=== PATIENT | male | born 1970 | race Caucasian/White ===

== ENCOUNTER 2021-03-30 16:14 | Observation (INO) | payer OTHER, SELFPAY ==
[2021-03-30] VITALS (11 sets, daily range): BP systolic 99–132; BP diastolic 57–70; PULSE 104–116; RESP 16–22; TEMP 37.2–39; O2SAT 91–100; BMI 29.8
--- NOTE | 2021-03-30 16:37 | DI.RAD.S_ITS ---
PROCEDURE: XR CHEST 1V INDICATIONS: suspected sepsis TECHNIQUE: One view of the chest was acquired. COMPARISON: None. FINDINGS: Surgical changes and devices: None. Lungs and pleura: Mild pulmonary vascular congestion is seen. No definite focal infiltrate. Right basilar atelectasis is seen. No pleural effusions or pneumothorax. Mediastinum: Mediastinal contours appear normal. Heart size is normal. Bones and chest wall: No suspicious bony lesions. Overlying soft tissues appear unremarkable. IMPRESSION: Mild pulmonary vascular congestion and right basilar atelectasis. No definite focal infiltrate. No significant pleural effusion or pneumothorax. Dictated by: Navi Mckeon M.D. on 03/30/2021 at 17:10 Approved by: Navi Mckeon M.D. on 03/30/2021 at 17:10
--- NOTE | 2021-03-30 17:36 | DI.CT.S_ITS ---
PROCEDURE: CT LE LT W CON INDICATIONS: ? Popliteal cyst, ? trauma TECHNIQUE: Noncontrast 3 mm axial sections acquired of the left lower extremity , with coronal and sagittal reformats. COMPARISON: None. FINDINGS: Image quality: Excellent. Bones: There is moderate tricompartmental osteoarthrosis of the left knee with joint space narrowing of the medial femorotibial compartment. Prominent marginal osteophyte are seen in all 3 compartments. No acute fracture. Normal alignment. No suspicious intraosseous lesion. Soft tissues: There is a moderate to large sized suprapatellar joint effusion. There is skin thickening involving the distal anterior left thigh extending to the distal left lower leg. There is also associated diffuse subcutaneous soft tissue edema seen throughout the imaged lower extremity. No evidence for organized fluid collections. No CT evidence for subcutaneous gas. No significant muscular soft tissue edema of the deep compartments of the lower leg. IMPRESSION: 1. No acute fracture, dislocation, or suspicious intraosseous lesions. 2. Moderate-large size suprapatellar joint effusion. If there is clinical concern for infectious etiology, consider further evaluation with aspiration. 3. Extensive skin thickening/edema with underlying subcutaneous soft tissue swelling of the imaged left lower extremity. Findings may be related to cellulitis. No organized fluid collection seen. 4. Moderate tricompartmental osteoarthrosis of the left knee. 5. No CT evidence for subcutaneous gas. Dictated by: Mathew Sanford M.D. on 03/30/2021 at 18:31 Approved by: Mathew Sanford M.D. on 03/30/2021 at 18:37
--- NOTE | 2021-03-30 18:00 | DI.US.S_ITS ---
PROCEDURE: US PERIPH VENOUS LOW EXTREM LT INDICATIONS: SWELLING AND ERYTHEMA TECHNIQUE: Real-time imaging, as well as color and pulse Doppler interrogation, were performed of the lower extremity deep veins from the inguinal ligament to the popliteal fossa. COMPARISON: [facility], CT, CT LE LT WO CON, 03/30/2021, 17:48. FINDINGS: The common femoral, femoral and popliteal veins are normally compressible, and free of intraluminal thrombus. Color and pulse Doppler demonstrate normal phasic intraluminal flow. There is normal augmentation response to distal compression maneuver. IMPRESSION: Negative for deep venous thrombosis of the left lower extremity. Not mentioned above, numerous prominent left inguinal lymph nodes are noted. These are likely reactive. Dictated by: Mathew Sanford M.D. on 03/30/2021 at 18:51 Approved by: Mathew Sanford M.D. on 03/30/2021 at 18:52
[2021-03-30] MEDS: SODIUM CHLORIDE 0.9% 1,000 ML 1000 ML IV ×3 (18:06→23:40)
[2021-03-30 18:15] LABS: Add Manual Diff / Slide Review NO; Basophils Absolute Auto 0 /uL (0-100); Basophils Percent Auto 0.2 % (0-2); Eosinophils Absolute Auto 0 /uL (0-450); Hematocrit 43.3 % (41-53); Hemoglobin 14.7 g/dL (13.5-17.5); Lymphocytes Absolute Auto 600 /uL (1100-4500); Mean Corpuscular HGB Conc 33.9 % (30-36); Mean Corpuscular Hemoglobin 29.1 PG (26-34); Mean Corpuscular Volume 85.7 fL (80-100); Monocytes Absolute Auto 700 /uL (0-900); Monocytes Percent Auto 3.7 % (3-14); Neutrophils Absolute Auto 17700 /uL (1500-7000); Neutrophils Percent Auto 93.1 % (50-75); Platelet Count 170 X10^3/uL (150-400); Red Blood Cell Count 5.05 X10^6/uL (4.5-5.9); Red Cell Distribution Width 13.3 % (11.6-14.8)
[2021-03-30] MEDS: MORPHINE 4 MG/ML INJ IV (18:33)
[2021-03-30 18:39] LABS: Alanine Aminotransferase 19 IU/L (<50); Albumin 4.2 g/dL (3.5-5.0); Albumin Globulin Ratio 1.4 (1.0-2.8); Alkaline Phosphatase 73 U/L (38-126); Aspartate Aminotransferase 24 IU/L (17-59); BUN Creatinine Ratio 12.8 (6-22); Bilirubin Total 0.7 mg/dL (0.2-1.3); Blood Urea Nitrogen 14 mg/dL (9-20); Calcium 9.4 mg/dL (8.4-10.2); Carbon Dioxide 31 mmol/L (22-32); Chloride 97 mmol/L (98-107); Estimated Glomerular Filt Rate > 60.0 mL/min (>60); Globulin 3.1 g/dL (1.7-4.1); Glucose 112 mg/dL (70-100); HEMOLYSIS < 15 (0-50); Lipase 97 U/L (23-300); Potassium 4.1 mmol/L (3.4-5.1); Sodium 135 mmol/L (137-145); Total Protein 7.3 g/dL (6.3-8.2)
[2021-03-30 18:40] LABS: Lactate (Lactic Acid) 2.2 mmol/L (0.7-2.1)
[2021-03-30 18:43] LABS: C-Reactive Protein Quant 3.2 mg/dL (<1.0)
[2021-03-30 18:55] LABS: Procalcitonin 7.25 ng/mL (<0.5)
[2021-03-30 19:18] LABS: Erythrocyte Sedimentation Rate 4 MM/HR (0-15)
[2021-03-30] MEDS: ACETAMINOPHEN 325 MG TABLET 975 MG PO (19:30)
--- NOTE | 2021-03-30 19:41 | ED_ITS ---
HPI - Skin/Abscess/Foreign Bdy <Trevor Edwards PA-C - Last Filed: 03/30/21 20:41> General Chief complaint: Skin/Abscess/Foreign Body Stated complaint: Left Knee/Leg Pain and Swelling Time Seen by Provider: 03/30/21 16:57 Source: patient Mode of arrival: Wheelchair History of Present Illness HPI narrative: 50-year-old male with no reported past medical history presents to the ED with 1 day of left knee redness and lower left leg swelling, pain. Patient states that he has had left knee problems for the last year, however this morning he noticed that the front of the left knee looked red but less swollen and less painful. However he experience redness,intense pain in his left lower leg. Patient denies any recent trauma or infection. Denies fever, endorses chills. Denies chest pain, shortness of breath, cough, nausea, vomiting, abdominal pain, dysuria, diarrhea, lightheadedness, dizziness, syncope. Patient states he is able to bend his knee and flexes ankles, but his range of movement is somewhat limited by pain. Patient is a states he is able to bear weight and walk on the left leg although it is painful. Patient denies numbness, tingling, weakness. Related Data Previous Rx's Medication Instructions Recorded doxycycline hyclate 100 mg tablet 100 mg PO BID #20 tab 03/31/21 sulfamethoxazole 800 1 tab PO BID #20 tab 03/31/21 mg-trimethoprim 160 mg tablet (Bactrim DS) Allergies Allergy/AdvReac Type Severity Reaction Status Date / Time No Known Drug Allergies Allergy Verified 03/30/21 20:21 Review of Systems <Trevor Edwards PA-C - Last Filed: 03/30/21 20:41> Constitutional Constitutional: Reports chills, Denies fatigue, Denies fever(s), Denies frequent falls, Denies lethargy and Denies weakness Eyes Eyes: Denies change in vision, Denies eye discharge, Denies irritation and Denies loss of vision ENT Ears, Nose, Mouth, and Throat: Denies change in voice, Denies dizziness, Denies neck pain, Denies sore throat and Denies throat swelling Cardiovascular Cardiovascular: Denies chest pain, Denies irregular heart rhythm, Denies li ghtheadedness, Denies palpitations, Denies dyspnea, Denies dyspnea on exertion and Denies orthopnea Respiratory Respiratory: Denies cough, Denies dyspnea, Denies dyspnea on exertion and Denies wheezing Gastrointestinal Gastrointestinal: Denies abdominal pain, Denies change in bowel habits, Denies diarrhea, Denies nausea and Denies vomiting Musculoskeletal Musculoskeletal: Denies neck pain and Denies numbness Comments: Swelling, erythema, pain, of left knee, left lower leg pain Integumentary/Breasts Skin/Breast: Denies pruritus, Denies erythema, Denies rash and Denies wounds Neurologic Neurologic: Denies behavioral changes, Denies confusion, Denies dizziness, Denies frequent falls, Denies loss of vision, Denies numbness and Denies weakness Psychiatric Psychiatric: Denies anxiety, Denies behavioral changes, Denies confusion, Denies depression, Denies homicidal ideation and Denies suicidal ideation Endocrine Endocrine: Denies fatigue, Denies flushing and Denies palpitations Hematologic/Lymphatic Hematologic/Lymphatic: Denies easy bruising Allergic/Immunologic Allergic/Immunologic: Denies urticaria, Denies throat swelling and Denies wheezing Patient History <Trevor Edwards PA-C - Last Filed: 03/30/21 20:41> Social History household members: spouse Smoking Status: Current every day smoker Smoking Status: Current every day smoker Exam <Trevor Edwards PA-C - Last Filed: 03/30/21 20:41> Initial Vital Signs Initial Vital Signs: Vital Signs Temperature 99.9 F H 03/30/21 16:33 Pulse Rate 114 H 03/30/21 16:33 Respiratory Rate 22 03/30/21 16:33 Blood Pressure 127/60 03/30/21 16:33 Pulse Oximetry 100 03/30/21 16:33 Const General: cooperative [facility] Head: normocephalic and atraumatic Ears: external ears normal and TM's normal bilaterally Nose: external nose normal and No nasal discharge Face and sinus: sinuses nontender, face symmetric, no sinus tenderness and No dry mucous membranes Mouth: oral mucosae normal and moist mucous membranes Teeth and gingiva: dentition normal Throat: tonsils normal and uvula midline Eyes General: appearance normal, both eyes and all related structures Eyelids: eyelids normal Conjunctivae: conjunctivae normal Sclera: sclerae normal Pupils: PERRL EOM: EOM intact bilaterally Neck Neck: normal visual inspection, trachea midline, No lymphadenopathy, No midline deformity and No JVD Lymphatic: No lymphedema Chest Chest: normal inspection of the chest Resp Effort & Inspection: normal respiratory effort, able to speak in complete sentences, no respiratory distress and no use of accessory muscles Auscultation: clear to auscultation bilaterally, no rales, no rhonchi and no wheezes Cardio Rate: regular rate and tachycardic Rhythm: regular rhythm Heart Sounds: no click, no gallops, no murmurs and no rubs Pulses: normal peripheral pulses GI Inspection: non-distended Palpation: soft, no hepatosplenomegaly, No guarding, No pulsatile mass and No tender Auscultation: normal bowel sounds Back/Spine/Pelvis Back: No CVA tenderness Cervical Spine: cervical ROM normal and No pain with cervical ROM Thoracic/Lumbar Spine: thoracic and lumbar spine normal to inspection Skin General: no rashes or lesions noted, No jaundice and No petechiae Neuro General: patient alert, patient oriented x3, gait normal and no focal motor deficits Speech: speech normal Extrem General: full ROM, no clubbing, cyanosis or edema, no pedal edema and no calf tenderness Other: Swelling, erythema, warmth, TTP of left anterior knee, left lower leg. Full range of motion, knee and ankle movement only limited by pain. Neurovascularly intact. Psych Appearance: well kempt Mental Status: mental status grossly normal Attitude: cooperative Thought Content: normal and suicidality Judgment: judgment good <Mary Knox, - Last Filed: 04/01/21 08:21> Initial Vital Signs Initial Vital Signs: Vital Signs Temperature 99.9 F H 03/30/21 16:33 Pulse Rate 114 H 03/30/21 16:33 Respiratory Rate 22 03/30/21 16:33 Blood Pressure 127/60 03/30/21 16:33 Pulse Oximetry 100 03/30/21 16:33 <Mary Knox DO - Last Filed: 04/01/21 08:21> Joint Aspiration Joint Asp./Inject. 1: Side of body: left Joint Aspirated: knee (Prepatellar) Skin Prep: Chlorhexidine Local Anesthetic: lidocaine 1% Amount of anesthesia used (mL): 2 Needle Size Used: 18G Fluid Obtained: bloody Total fluid obtained (mL): 4 Complications: none Course <Trevor Edwards PA-C - Last Filed: 03/30/21 20:41> Course Course Narrative: WBC 19, lactate 2.2, procalcitonin 7.25, CRP 3.2, ESR 4. Patient triggered sepsis, sepsis fluid started. Tylenol given for fever. Blood cultures ordered. Consulted with Dr. Tanner from Orthopedics, he recommends a tap of the prepatellar bursa prior to starting IV vancomycin, admitting to Medicine. Dr. Tanner will follow-up with patient tomorrow to see how he is responding to antibiotic treatment. Patient's prepatellar bursa tapped by Dr. Mary Knox. Dr. Tanner notified regarding tap. Blood cultures drawn Vancomuycin.Zosyn initiated. Patient given Toradol in addition to Tylenol for fever that is now elevated to 102F. Patient otherwise stable. Patient admitted to medicine with Dr. Wilson. Orders Ordered: ED Orders 03/30/21 16:37 XR chest 1V Stat Blood Culture Stat 03/30/21 17:36 CT LE LT wo con Stat 03/30/21 18:00 US periph venous low extrem lt Stat C-Reactive Protein Quant Stat Complete Blood Count AUTO DIFF Stat Comprehensive Metabolic Panel Stat Erythrocyte Sedimentation Rate Stat Lactate (Lactic Acid) Stat Lipase Stat Procalcitonin Stat 03/30/21 20:26 Body Fluid Culture Stat Cell Count w Diff Body Fluid Stat Glucose Body Fluid Stat Gram Stain Stat Total Protein Body Fluid Stat 03/30/21 20:31 COVID19 - ADMIT ([employer] swab/PCR) Stat Vancomycin HCl/Dextrose (Vancomycin) 1,500 mg in 300 mls @ 200 mls/hr IV Q12H SARAH Discontinued Medications Acetaminophen (Acetaminophen 325 Mg Tablet) 975 mg PO NOW ONE Stop: 03/30/21 19:17 Last Admin: 03/30/21 19:30 Dose: 975 mg Documented by: RADHA Sodium Chloride (Normal Saline 0.9%) 1,000 mls @ 1,000 mls/hr IV BOLUS ONE Stop: 03/30/21 17:36 Last Infusion: 03/30/21 19:14 Dose: 0 mls/hr Documented by: [email or web address] Admin: 03/30/21 18:06 Dose: 1,000 mls/hr Documented by: CTRGriffinGENA Sodium Chloride (Normal Saline 0.9%) 1,000 mls @ 1,000 mls/hr IV BOLUS ONE Stop: 03/30/21 19:55 Last Admin: 03/30/21 19:23 Dose: 1,000 mls/hr Documented by: SRINI Sodium Chloride (Normal Saline 0.9%) 1,000 mls @ 2,000 mls/hr IV BOLUS ONE Stop: 03/30/21 19:44 Last Admin: 03/30/21 19:30 Dose: Not Given Documented by: RADHA Piperacillin Sod/Tazobactam (Sod 4.5 gm/ Sodium Chloride) 100 mls @ 200 mls/hr IV NOW ONE Stop: 03/30/21 20:31 Ketorolac Tromethamine (Ketorolac 30 Mg/Ml Vial) 15 mg IV NOW ONE Stop: 03/30/21 20:15 Last Admin: 03/30/21 20:24 Dose: 15 mg Documented by: STACI Lidocaine HCl (Lidocaine 1% 20 Ml) 10 ml INJ NOW ONE Stop: 03/30/21 20:08 Last Admin: 03/30/21 20:22 Dose: Not Given Documented by: STACI Morphine Sulfate (Morphine 4 Mg/Ml Inj) 4 mg IV NOW ONE Stop: 03/30/21 18:09 Last Admin: 03/30/21 18:33 Dose: 4 mg Documented by: SRINI Vital Signs Vital signs: Vital Signs - 8 hr 03/30/21 16:33 03/30/21 18:49 03/30/21 19:58 Temperature 99.9 F H Pulse Rate 114 H 113 H 115 H Respiratory Rate 22 20 Blood Pressure 127/60 132/70 Pulse Oximetry 100 95 93 03/30/21 20:00 03/30/21 20:10 Temperature 102.2 F H 102.2 F H Pulse Rate 116 H Respiratory Rate Blood Pressure 121/68 Pulse Oximetry 93 <Mary Knox DO - Last Filed: 04/01/21 08:21> Orders Ordered: ED Orders 03/30/21 16:37 XR chest 1V Stat Blood Culture Stat 03/30/21 17:36 CT LE LT wo con Stat 03/30/21 18:00 US periph venous low extrem lt Stat C-Reactive Protein Quant Stat Complete Blood Count AUTO DIFF Stat Comprehensive Metabolic Panel Stat Erythrocyte Sedimentation Rate Stat Lactate (Lactic Acid) Stat Lipase Stat Procalcitonin Stat 03/30/21 20:26 Body Fluid Culture Stat Cell Count w Diff Body Fluid Stat Glucose Body Fluid Stat Gram Stain Stat Total Protein Body Fluid Stat 03/30/21 20:31 COVID19 - ADMIT ([employer] swab/PCR) Stat Vancomycin HCl/Dextrose (Vancomycin) 1,500 mg in 300 mls @ 200 mls/hr IV Q12H SARAH Discontinued Medications Acetaminophen (Acetaminophen 325 Mg Tablet) 975 mg PO NOW ONE Stop: 03/30/21 19:17 Last Admin: 03/30/21 19:30 Dose: 975 mg Documented by: RADHA Sodium Chloride (Normal Saline 0.9%) 1,000 mls @ 1,000 mls/hr IV BOLUS ONE Stop: 03/30/21 17:36 Last Infusion: 03/30/21 19:14 Dose: 0 mls/hr Documented by: Admin: 03/30/21 18:06 Dose: 1,000 mls/hr Documented by: HANDER Sodium Chloride (Normal Saline 0.9%) 1,000 mls @ 1,000 mls/hr IV BOLUS ONE Stop: 03/30/21 19:55 Last Admin: 03/30/21 19:23 Dose: 1,000 mls/hr Documented by: HANDER Sodium Chloride (Normal Saline 0.9%) 1,000 mls @ 2,000 mls/hr IV BOLUS ONE Stop: 03/30/21 19:44 Last Admin: 03/30/21 19:30 Dose: Not Given Documented by: RADHA Piperacillin Sod/Tazobactam (Sod 4.5 gm/ Sodium Chloride) 100 mls @ 200 mls/hr IV NOW ONE Stop: 03/30/21 20:31 Ketorolac Tromethamine (Ketorolac 30 Mg/Ml Vial) 15 mg IV NOW ONE Stop: 03/30/21 20:15 Last Admin: 03/30/21 20:24 Dose: 15 mg Documented by: STACI Lidocaine HCl (Lidocaine 1% 20 Ml) 10 ml INJ NOW ONE Stop: 03/30/21 20:08 Last Admin: 03/30/21 20:22 Dose: Not Given Documented by: STACI Morphine Sulfate (Morphine 4 Mg/Ml Inj) 4 mg IV NOW ONE Stop: 03/30/21 18:09 Last Admin: 03/30/21 18:33 Dose: 4 mg Documented by: SRINI Vital Signs Vital signs: Vital Signs - 8 hr 03/30/21 16:33 03/30/21 18:49 03/30/21 19:58 Temperature 99.9 F H Pulse Rate 114 H 113 H 115 H Respiratory Rate 22 20 Blood Pressure 127/60 132/70 Pulse Oximetry 100 95 93 03/30/21 20:00 03/30/21 20:10 Temperature 102.2 F H 102.2 F H Pulse Rate 116 H Respiratory Rate Blood Pressure 121/68 Pulse Oximetry 93 MDM - Skin/Abscess/Foreign Bdy <Trevor Edwards PA-C - Last Filed: 03/30/21 20:41> Lab Data Lab results narrative: WBC 19, ESR for, CRP 3.2, lactate 2.2 Result diagrams: 03/31/21 05:30 03/31/21 05:30 Labs: Lab Results 03/30/21 03/30/21 03/30/21 Range/Units 18:00 18:00 18:00 WBC 19.0 H (4.5-11.0) X10^3/uL RBC 5.05 (4.5-5.9) X10^6/uL Hgb 14.7 (13.5-17.5) g/dL Hct 43.3 (41-53) % MCV 85.7 (80-100) fL MCH 29.1 (26-34) PG MCHC 33.9 (30-36) % RDW 13.3 (11.6-14.8) % Plt Count 170 (150-400) X10^3/uL Neut % (Auto) 93.1 H (50-75) % Lymph % (Auto) 3.0 L (25-40) % [place] % (Auto) 3.7 (3-14) % Eos % (Auto) 0.0 L (2-4) % Baso % (Auto) 0.2 (0-2) % Neut # (Auto) 97555 H (5402-0290) /uL Lymph # (Auto) 600 L (8032-8492) /uL [place] # (Auto) 700 (0-900) /uL Eos # (Auto) 0 (0-450) /uL Baso # (Auto) 0 (0-100) /uL ESR (0-15) MM/HR Sodium 135 L (137-145) mmol/L Potassium 4.1 (3.4-5.1) mmol/L Chloride 97 L (98-107) mmol/L Carbon Dioxide 31 (22-32) mmol/L BUN 14 (9-20) mg/dL Creatinine 1.09 (0.66-1.25) mg/dL Estimated GFR > 60.0 (>60) mL/min BUN/Creatinine Ratio 12.8 (6-22) Glucose 112 H (70-100) mg/dL Lactate 2.2 H (0.7-2.1) mmol/L Calcium 9.4 (8.4-10.2) mg/dL Total Bilirubin 0.7 (0.2-1.3) mg/dL AST 24 (17-59) IU/L ALT 19 (<50) IU/L Alkaline Phosphatase 73 (38-126) U/L C-Reactive Protein (<1.0) mg/dL Total Protein 7.3 (6.3-8.2) g/dL Albumin 4.2 (3.5-5.0) g/dL Globulin 3.1 (1.7-4.1) g/dL Albumin/Globulin Ratio 1.4 (1.0-2.8) Lipase 97 (23-300) U/L Procalcitonin 7.25 H (<0.5) ng/mL Fluid Color Fluid Appearance Fluid RBC /uL Fld Tot Nucleated Cell /uL Fluid Polynuclear WBCs % Fluid Mononuclear WBCs % Fluid Eosinophils % Fluid Other Cells % Body Fluid Clot Fluid Glucose mg/dL Fluid Total Protein g/dL 03/30/21 03/30/21 03/30/21 Range/Units 18:00 18:00 20:25 WBC (4.5-11.0) X10^3/uL RBC (4.5-5.9) X10^6/uL Hgb (13.5-17.5) g/dL Hct (41-53) % MCV (80-100) fL MCH (26-34) PG MCHC (30-36) % RDW (11.6-14.8) % Plt Count (150-400) X10^3/uL Neut % (Auto) (50-75) % Lymph % (Auto) (25-40) % [place] % (Auto) (3-14) % Eos % (Auto) (2-4) % Baso % (Auto) (0-2) % Neut # (Auto) (2958-3014) /uL Lymph # (Auto) (6272-7552) /uL [place] # (Auto) (0-900) /uL Eos # (Auto) (0-450) /uL Baso # (Auto) (0-100) /uL ESR 4 (0-15) MM/HR Sodium (137-145) mmol/L Potassium (3.4-5.1) mmol/L Chloride (98-107) mmol/L Carbon Dioxide (22-32) mmol/L BUN (9-20) mg/dL Creatinine (0.66-1.25) mg/dL Estimated GFR (>60) mL/min BUN/Creatinine Ratio (6-22) Glucose (70-100) mg/dL Lactate (0.7-2.1) mmol/L Calcium (8.4-10.2) mg/dL Total Bilirubin (0.2-1.3) mg/dL AST (17-59) IU/L ALT (<50) IU/L Alkaline Phosphatase (38-126) U/L C-Reactive Protein 3.2 H (<1.0) mg/dL Total Protein (6.3-8.2) g/dL Albumin (3.5-5.0) g/dL Globulin (1.7-4.1) g/dL Albumin/Globulin Ratio (1.0-2.8) Lipase (23-300) U/L Procalcitonin (<0.5) ng/mL Fluid Color Red Fluid Appearance Cloudy Fluid RBC 974513 /uL Fld Tot Nucleated Cell 99564 /uL Fluid Polynuclear WBCs 88 % Fluid Mononuclear WBCs 12 % Fluid Eosinophils 0 % Fluid Other Cells 0 % Body Fluid Clot No clots present Fluid Glucose < 20 mg/dL Fluid Total Protein 2.8 g/dL Imaging Data CT scan Left LE: Radiologist's Impression: PROCEDURE:? CT LE LT W CON ? INDICATIONS:? ? Popliteal cyst, ? trauma ? TECHNIQUE:? Noncontrast 3 mm axial sections acquired of the left lower extremity , with coronal and sagittal reformats. ? ? COMPARISON:? None. ? FINDINGS:? Image quality:? Excellent.? ? Bones:? There is moderate tricompartmental osteoarthrosis of the left knee with joint space narrowing of the medial femorotibial compartment.? Prominent marginal osteophyte are seen in all 3 compartments.? No acute fracture.? Normal alignment.? No suspicious intraosseous lesion. ? Soft tissues:? There is a moderate to large sized suprapatellar joint effusion.? There is skin thickening involving the distal anterior left thigh extending to the distal left lower leg.? There is also associated diffuse subcutaneous soft tissue edema seen throughout the imaged lower extremity.? No evidence for organized fluid collections.? No CT evidence for subcutaneous gas.? No significant muscular soft tissue edema of the deep compartments of the lower leg. ? IMPRESSION:? ? 1. No acute fracture, dislocation, or suspicious intraosseous lesions. ? 2. Moderate-large size suprapatellar joint effusion.? If there is clinical concern for infectious etiology, consider further evaluation with aspiration. ? 3. Extensive skin thickening/edema with underlying subcutaneous soft tissue swelling of the imaged left lower extremity.? Findings may be related to cellulitis.? No organized fluid collection seen. ? 4. Moderate tricompartmental osteoarthrosis of the left knee. ? 5. No CT evidence for subcutaneous gas.? ? ? Dictated by: Mathew Sanford M.D. on 03/30/2021 at 18:31 ? ? Approved by: Mathew Sanford M.D. on 03/30/2021 at 18:37 ? US - DVT: Radiologist's Impression: PROCEDURE:? US PERIPH VENOUS LOW EXTREM LT ? INDICATIONS:? SWELLING AND ERYTHEMA ? TECHNIQUE:? Real-time imaging, as well as color and pulse Doppler interrogation, were performed of the lower extremity deep veins from the inguinal ligament to the popliteal fossa.? ? COMPARISON:? [facility], CT, CT LE LT WO CON, 03/30/2021, 17:48. ? FINDINGS:? The common femoral, femoral and popliteal veins are normally compressible, and free of intraluminal thrombus.? Color and pulse Doppler demonstrate normal phasic intraluminal flow.? There is normal augmentation response to distal compression maneuver. ? ? IMPRESSION:? Negative for deep venous thrombosis of the left lower extremity. ? Not mentioned above, numerous prominent left inguinal lymph nodes are noted.? These are likely reactive. ? ? ? Dictated by: Mathew Sanford M.D. on 03/30/2021 at 18:51 ? ? Approved by: Mathew Sanford M.D. on 03/30/2021 at 18:52 ? Chest x-ray: Radiologist's Impression: PROCEDURE:? XR CHEST 1V ? INDICATIONS:? suspected sepsis ? TECHNIQUE:? One view of the chest was acquired.? ? COMPARISON:? None. ? FINDINGS:? ? Surgical changes and devices:? None.? ? Lungs and pleura:? Mild pulmonary vascular congestion is seen.? No definite focal infiltrate.? Right basilar atelectasis is seen.? No pleural effusions or pneumothorax.? ? Mediastinum:? Mediastinal contours appear normal.? Heart size is normal.? ? Bones and chest wall:? No suspicious bony lesions.? Overlying soft tissues appear unremarkable.? ? IMPRESSION:? Mild pulmonary vascular congestion and right basilar atelectasis.? No definite focal infiltrate.? No significant pleural effusion or pneumothorax. ? ? Dictated by: Navi Mckeon M.D. on 03/30/2021 at 17:10 ? ? Approved by: Navi Mckeon M.D. on 03/30/2021 at 17:10 ? MDM Narrative Medical decision making narrative: 50-year-old male with no reported past medical history presents to the ED with 1 day of left knee redness and lower left leg swelling, pain. Concern for septic arthritis versus septic bursitis versus Villalobos cyst versus cellulitis versus DVT versus sepsis versus bacteremia. Will order labs, lactate, ESR, CRP, procalcitonin, blood cultures, ultrasound left lower extremity, CT left lower extremity. Will give Tylenol for fever. Will reassess. <Mary Knox, - Last Filed: 04/01/21 08:21> Lab Data Labs: Lab Results 03/30/21 03/30/21 03/30/21 Range/Units 18:00 18:00 18:00 WBC 19.0 H (4.5-11.0) X10^3/uL RBC 5.05 (4.5-5.9) X10^6/uL Hgb 14.7 (13.5-17.5) g/dL Hct 43.3 (41-53) % MCV 85.7 (80-100) fL MCH 29.1 (26-34) PG MCHC 33.9 (30-36) % RDW 13.3 (11.6-14.8) % Plt Count 170 (150-400) X10^3/uL Neut % (Auto) 93.1 H (50-75) % Lymph % (Auto) 3.0 L (25-40) % [place] % (Auto) 3.7 (3-14) % Eos % (Auto) 0.0 L (2-4) % Baso % (Auto) 0.2 (0-2) % Neut # (Auto) 88017 H (0882-7271) /uL Lymph # (Auto) 600 L (0272-9941) /uL [place] # (Auto) 700 (0-900) /uL Eos # (Auto) 0 (0-450) /uL Baso # (Auto) 0 (0-100) /uL ESR (0-15) MM/HR Sodium 135 L (137-145) mmol/L Potassium 4.1 (3.4-5.1) mmol/L Chloride 97 L (98-107) mmol/L Carbon Dioxide 31 (22-32) mmol/L BUN 14 (9-20) mg/dL Creatinine 1.09 (0.66-1.25) mg/dL Estimated GFR > 60.0 (>60) mL/min BUN/Creatinine Ratio 12.8 (6-22) Glucose 112 H (70-100) mg/dL Lactate 2.2 H (0.7-2.1) mmol/L Calcium 9.4 (8.4-10.2) mg/dL Total Bilirubin 0.7 (0.2-1.3) mg/dL AST 24 (17-59) IU/L ALT 19 (<50) IU/L Alkaline Phosphatase 73 (38-126) U/L C-Reactive Protein (<1.0) mg/dL Total Protein 7.3 (6.3-8.2) g/dL Albumin 4.2 (3.5-5.0) g/dL Globulin 3.1 (1.7-4.1) g/dL Albumin/Globulin Ratio 1.4 (1.0-2.8) Lipase 97 (23-300) U/L Procalcitonin 7.25 H (<0.5) ng/mL Fluid Color Fluid Appearance Fluid RBC /uL Fld Tot Nucleated Cell /uL Fluid Polynuclear WBCs % Fluid Mononuclear WBCs % Fluid Eosinophils % Fluid Other Cells % Body Fluid Clot Fluid Glucose mg/dL Fluid Total Protein g/dL 03/30/21 03/30/21 03/30/21 Range/Units 18:00 18:00 20:25 WBC (4.5-11.0) X10^3/uL RBC (4.5-5.9) X10^6/uL Hgb (13.5-17.5) g/dL Hct (41-53) % MCV (80-100) fL MCH (26-34) PG MCHC (30-36) % RDW (11.6-14.8) % Plt Count (150-400) X10^3/uL Neut % (Auto) (50-75) % Lymph % (Auto) (25-40) % [place] % (Auto) (3-14) % Eos % (Auto) (2-4) % Baso % (Auto) (0-2) % Neut # (Auto) (3712-1759) /uL Lymph # (Auto) (9917-0908) /uL [place] # (Auto) (0-900) /uL Eos # (Auto) (0-450) /uL Baso # (Auto) (0-100) /uL ESR 4 (0-15) MM/HR Sodium (137-145) mmol/L Potassium (3.4-5.1) mmol/L Chloride (98-107) mmol/L Carbon Dioxide (22-32) mmol/L BUN (9-20) mg/dL Creatinine (0.66-1.25) mg/dL Estimated GFR (>60) mL/min BUN/Creatinine Ratio (6-22) Glucose (70-100) mg/dL Lactate (0.7-2.1) mmol/L Calcium (8.4-10.2) mg/dL Total Bilirubin (0.2-1.3) mg/dL AST (17-59) IU/L ALT (<50) IU/L Alkaline Phosphatase (38-126) U/L C-Reactive Protein 3.2 H (<1.0) mg/dL Total Protein (6.3-8.2) g/dL Albumin (3.5-5.0) g/dL Globulin (1.7-4.1) g/dL Albumin/Globulin Ratio (1.0-2.8) Lipase (23-300) U/L Procalcitonin (<0.5) ng/mL Fluid Color Red Fluid Appearance Cloudy Fluid RBC 246841 /uL Fld Tot Nucleated Cell 09322 /uL Fluid Polynuclear WBCs 88 % Fluid Mononuclear WBCs 12 % Fluid Eosinophils 0 % Fluid Other Cells 0 % Body Fluid Clot No clots present Fluid Glucose < 20 mg/dL Fluid Total Protein 2.8 g/dL Discharge Plan Departure Patient Disposition: Admitted As Inpatient Clinical Impression: Cellulitis Qualifiers: Site of cellulitis: extremity Site of cellulitis of extremity: lower extremity Laterality: left Qualified Code(s): L03.116 - Cellulitis of left lower limb Admit Date/Time: 03/30/21 20:33 Admit Provider: Ryland Wilson <Mary Knox DO - Last Filed: 04/01/21 08:21> Cosign ED Attending Cosignature Attestation: I saw and evaluated patient myself. Patient overall appears ill left lower extremity is erythematous all left knee has sure prepatellar swelling bursitis with some overlapping erythema. However there are areas where there is no erythema and there is definitely a between lower leg erythema and prepatellar erythema. Patient is septic with leukocytosis lactic acid and fever. He is not hypotensive but is tachycardic. Orthopedics has been involved area has been aspirated antibiotic started. Dr. villalobos notified and accepted I was immediately available in the department for consultation. Documentation has been reviewed. I agree with assessment and plan.
--- NOTE | 2021-03-30 19:56 | PC.NURSE ---
Pt's inquiring about the reason pt has not recieved antbx yet. I asked CYRUS Murray the reason and she states that they are going to tap the infected joint and then administer antbx. and pt informed.
[2021-03-30 20:06] LABS: Reflexed Lactate in 2 Hours Y
[2021-03-30] MEDS: LIDOCAINE 1% (PF) 4 ML (20:21)
[2021-03-30] MEDS: KETOROLAC 30 MG/ML VIAL 15 MG IV (20:24)
--- NOTE | 2021-03-30 20:30 | PC.NURSE ---
Pt refusing to have covid test. Informed that he would then have to be treated as if he has covid and therefore have no visitors and be on precautions. He states I'm informed. Family member also verbalized understanding of policy and procedure.
--- NOTE | 2021-03-30 20:40 | P.HP_ITS ---
History of Present Illness History of Present Illness Date Patient Seen: 03/30/21 Time Patient Seen: 22:00 Chief complaint: Left Knee/Leg Pain and Swelling Narrative: Mr. Yu is a 50M who states he has no medical history, taking no medications, who presents to the ED with one day of left leg swelling, pain, redness, and warmth. He states he has had pain in the back of his kneed for a year. However the pain today was dramatically different. He has no fevers/chill s. He has no trauma. No chest pain, shortness of breath, cough, nausea, vomiting, abdominal pain, dysuria. He has been able to flex then knee but he does have pain when he does so, he is able to walk on the leg as well. In the ED, workup was done temperate 102.2, tachy in the 110s, blood pressure in the 90s systolic, O2 sats normal. Labs notable for WBC 19, hgb 14.7, plt 170. Na 135, creatinine 1.09. Lactate 2.2, procal 7.25. CRP 3.2. CT of his left extremity showed suprapatellar joint effusion, thick subcutanoeus skin swelling, and arthritis of the left knee. Ultrasound was negative for DVT. Bursa was tapped in the ED. He was ordered IV fluid and antibiotics. He was admitted for further treatment. Family history: Father with diabetes Social history: every day smoker Patient History Family & Social History Social History: household members spouse Prior Living Arrangements House Safety & Behavioral: Feels Safe in Current Yes Environment Been Physically Hurt or No Threatened By a Person Suicidal Ideation Description None Suicide Plan Description No Plan Tobacco & Substance use: Tobacco type cigarettes Smoking Status Current every day smoker Substance Use Type does not use Meds Home Medications and Allergies Allergies Allergy/AdvReac Type Severity Reaction Status Date / Time No Known Drug Allergies Allergy Verified 03/30/21 20:21 Review of Systems Review of Systems Narrative: 14 systems reviewed and negative aside from what is noted in HPI Exam Vital Signs (past 8 hours): - 03/30/21 18:49 03/30/21 19:58 03/30/21 20:00 Temperature 102.2 F H Pulse Rate 113 H 115 H 116 H Respiratory Rate 20 Blood Pressure 132/70 121/68 Pulse Oximetry 95 93 93 03/30/21 20:10 03/30/21 20:30 03/30/21 20:33 Temperature 102.2 F H Pulse Rate 111 H Respiratory Rate Blood Pressure 108/64 Pulse Oximetry 91 03/30/21 21:00 03/30/21 21:30 03/30/21 21:39 Temperature 101.8 F H 99 F Pulse Rate 115 H 113 H Respiratory Rate 19 Blood Pressure 99/59 L 106/63 Pulse Oximetry 92 98 Oxygen Delivery Method Room Air Oxygen Flow Rate 0 Narrative Exam Narrative: GEN: no acute distress HEENT: moist mucous membranes, PERRL NECK: trachea midline, no JVD CV: regular rate and rhythm with no murmurs PULM: clear bilaterally no wheezes, rhonchi, rales ABD: soft, nontender, nondistended, no organomegaly, normal bowel sounds EXT: warm and well perfused, left extremity with swelling, erythema, warmth and tenderness of the left lower leg above the ankle and including the knee, full range of motion NEURO: awake, alert, oriented, moving all extremities PSYCH: pleasant, cooperative Objective Labs Result Diagrams: 03/30/21 18:00 03/30/21 18:00 Labs: Laboratory Results - last 24 hr 03/30/21 03/30/21 03/30/21 18:00 18:00 18:00 WBC 19.0 H RBC 5.05 Hgb 14.7 Hct 43.3 MCV 85.7 MCH 29.1 MCHC 33.9 RDW 13.3 Plt Count 170 Neut % (Auto) 93.1 H Lymph % (Auto) 3.0 L [place] % (Auto) 3.7 Eos % (Auto) 0.0 L Baso % (Auto) 0.2 Neut # (Auto) 31478 H Lymph # (Auto) 600 L [place] # (Auto) 700 Eos # (Auto) 0 Baso # (Auto) 0 ESR Sodium 135 L Potassium 4.1 Chloride 97 L Carbon Dioxide 31 BUN 14 Creatinine 1.09 Estimated GFR > 60.0 BUN/Creatinine Ratio 12.8 Glucose 112 H Lactate 2.2 H Calcium 9.4 Total Bilirubin 0.7 AST 24 ALT 19 Alkaline Phosphatase 73 C-Reactive Protein Total Protein 7.3 Albumin 4.2 Globulin 3.1 Albumin/Globulin Ratio 1.4 Lipase 97 Procalcitonin 7.25 H Fluid Color Fluid Appearance Fluid RBC Fld Tot Nucleated Cell Fluid Polynuclear WBCs Fluid Mononuclear WBCs Fluid Eosinophils Fluid Other Cells Body Fluid Clot Fluid Glucose Fluid Total Protein 03/30/21 03/30/21 03/30/21 18:00 18:00 20:25 WBC RBC Hgb Hct MCV MCH MCHC RDW Plt Count Neut % (Auto) Lymph % (Auto) [place] % (Auto) Eos % (Auto) Baso % (Auto) Neut # (Auto) Lymph # (Auto) [place] # (Auto) Eos # (Auto) Baso # (Auto) ESR 4 Sodium Potassium Chloride Carbon Dioxide BUN Creatinine Estimated GFR BUN/Creatinine Ratio Glucose Lactate Calcium Total Bilirubin AST ALT Alkaline Phosphatase C-Reactive Protein 3.2 H Total Protein Albumin Globulin Albumin/Globulin Ratio Lipase Procalcitonin Fluid Color Red Fluid Appearance Cloudy Fluid RBC 954100 Fld Tot Nucleated Cell 52463 Fluid Polynuclear WBCs 88 Fluid Mononuclear WBCs 12 Fluid Eosinophils 0 Fluid Other Cells 0 Body Fluid Clot No clots present Fluid Glucose < 20 Fluid Total Protein 2.8 03/30/21 20:34 WBC RBC Hgb Hct MCV MCH MCHC RDW Plt Count Neut % (Auto) Lymph % (Auto) [place] % (Auto) Eos % (Auto) Baso % (Auto) Neut # (Auto) Lymph # (Auto) [place] # (Auto) Eos # (Auto) Baso # (Auto) ESR Sodium Potassium Chloride Carbon Dioxide BUN Creatinine Estimated GFR BUN/Creatinine Ratio Glucose Lactate 1.1 Calcium Total Bilirubin AST ALT Alkaline Phosphatase C-Reactive Protein Total Protein Albumin Globulin Albumin/Globulin Ratio Lipase Procalcitonin Fluid Color Fluid Appearance Fluid RBC Fld Tot Nucleated Cell Fluid Polynuclear WBCs Fluid Mononuclear WBCs Fluid Eosinophils Fluid Other Cells Body Fluid Clot Fluid Glucose Fluid Total Protein Assessment & Plan Assessment & Plan narrative: 1. Acute cellulitis of left leg with probable suprapatellar bursitis of left knee -has erythema, tenderness, warmth of left leg and over left knee -doubt septic arthritis as has good range of motion -likely has bursitis given suprapatellar swelling -tapped in ED -blood cultures, bursa cultures pending -for now IV antibiotics with vancomycin, adjust pending cultures 2. L knee osteoarthritis -could refer back to pcp vs ortho as outpatient Code: Full Proxy: Kwesi Yu, spouse DVT ppx: lovenox 40 sc Dispo: observation as may be able to spend less than 1 midnight pending plan for bursitis and clinical course of cellulitis I have utilized all available immediate resources to obtain, update, or review the patient's current medications. Time Spent With Patient Critical Care time: I spent a total of [] minutes of critical care time on this patient's care today; this time is exclusive of procedural time. Quality VTE Deep Vein Thrombosis/Pulmonary Embolism Present on Admission: Yes MIPS - Admit I confirm the patient?s Advance Care Plan is present, Code status is documented, Surrogate decision maker is in patient?s record [If Yes, STOP here]: Yes
[2021-03-30] MEDS: PIPERACILLIN/TAZO 4.5 GM in SODIUM CHLORIDE 0.9% 100 ML 200 ML IV (20:49)
[2021-03-30 21:14] LABS: Lactate 2HR (Lactic Acid Rflx) 1.1 mmol/L (0.7-2.1)
[2021-03-30 21:15] LABS: Glucose Body Fluid < 20 mg/dL; Total Protein Body Fluid 2.8 g/dL
[2021-03-30 21:59] LABS: Body Fluid Red Blood Cells 236062 /uL; Body Fluid Tot Nucleated Cells 72281 /uL
[2021-03-30 22:00] LABS: Body Fluid Appearance CLOUDY; Body Fluid Clotted? NO CLOTS PRESENT; Body Fluid Color RED
[2021-03-30] MEDS: VANCOMYCIN 1,500 MG/300 ML PIGGYBACK 200 MG IV (22:08)
[2021-03-30 22:52] LABS: Eosinophils Body Fluid 0 %; Mononuclear WBC Body Fluid 12 %; Other Cells Body Fluid 0 %; Polynuclear WBC Body Fluid 88 %
[2021-03-31] VITALS (8 sets, daily range): BP systolic 120; BP diastolic 67; PULSE 101; RESP 18; TEMP 37.4–38.4; O2SAT 96–98
[2021-03-31] MEDS: ACETAMINOPHEN 325 MG TABLET 650 MG PO ×2 (01:07→09:12)
[2021-03-31] MEDS: KETOROLAC 30 MG/ML VIAL IV (02:19)
[2021-03-31 05:50] LABS: Add Manual Diff / Slide Review NO; Basophils Absolute Auto 0 /uL (0-100); Basophils Percent Auto 0.2 % (0-2); Eosinophils Absolute Auto 0 /uL (0-450); Eosinophils Percent Auto 0.1 % (2-4); Hematocrit 38.5 % (41-53); Hemoglobin 12.9 g/dL (13.5-17.5); Lymphocytes Absolute Auto 900 /uL (1100-4500); Lymphocytes Percent Auto 6.2 % (25-40); Mean Corpuscular HGB Conc 33.5 % (30-36); Mean Corpuscular Hemoglobin 28.9 PG (26-34); Mean Corpuscular Volume 86.4 fL (80-100); Monocytes Absolute Auto 400 /uL (0-900); Monocytes Percent Auto 2.6 % (3-14); Neutrophils Absolute Auto 12900 /uL (1500-7000); Neutrophils Percent Auto 90.9 % (50-75); Platelet Count 169 X10^3/uL (150-400); Red Blood Cell Count 4.45 X10^6/uL (4.5-5.9); Red Cell Distribution Width 13.1 % (11.6-14.8); White Blood Cell Count 14.2 X10^3/uL (4.5-11.0)
[2021-03-31 06:02] LABS: BUN Creatinine Ratio 12.2 (6-22); Blood Urea Nitrogen 14 mg/dL (9-20); Calcium 8.1 mg/dL (8.4-10.2); Carbon Dioxide 29 mmol/L (22-32); Chloride 103 mmol/L (98-107); Estimated Glomerular Filt Rate > 60.0 mL/min (>60); Glucose 96 mg/dL (70-100); HEMOLYSIS 19 (0-50); Potassium 3.5 mmol/L (3.4-5.1); Sodium 134 mmol/L (137-145)
[2021-03-31] MEDS: VANCOMYCIN 1,500 MG/300 ML PIGGYBACK 200 MG IV (09:11)
[2021-03-31] MEDS: ENOXAPARIN 40 MG/0.4 ML SYRINGE SUBCUT (09:11)
--- NOTE | 2021-03-31 10:31 | CM.DANOTE ---
DCP: Case received, EMR reviewed. Completed DCP assessment based upon information available, since patient has not wanted COVID test, and did not enter room. DCP assessment completed with information currently available. Patient is a 50 year old male who admitted yesterday morning to the care of the hospital team. PCP: None currently Payer: None listed. Patient came to the hospital via private vehicle secondary to his having increased knee pain and swelling. Patient does have history of osteeoarthritis of his left knee. He was diagnosed with acute cellulitis/patellar bursitis. Patient has refused COVID test. Discussed patient during team rounds. According to information from team rounds, patient refused COVID test secondary to his stating, he had a test recently. He resides in [place] with his spouse. 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 Dr. Godwin indicated that he checked his knee, and should no longer need further antibiotics. Patient is to be discharging home today. It is unclear if patient has medical insurance, but according to the account department, patient did have [employer] which in October, and [employer] as well. They will attempt to reach out to patient again regarding his financial situation. P: Patient is to be discharging home today. Sarah Beth Gamboa RN/Contract Clerk Discharge Planning/Care Management CM Discharge Assessment Start: 03/31/21 10:30 Freq: Status: Active Protocol: Document 03/31/21 10:30 (Rec: 03/31/21 10:31 [id number]) Discharge Planning Assessment Assigned Peg Driver Sarah Beth Gamboa RN/Contract Clerk Advance Directives? No History Provided By Patient,Medical Record Prior Living Arrangements House Household Members spouse Type of transporation used prior to Drives own vehicle admit Independent with ADL's Yes Is patient alert and oriented? Yes Caregiver for Another No Discharge Plan Home Transportation Arrangement Spouse Referrals Initiated None needed Whiteboard Updated in Patient Room with No name and ext. # of Peg Driver Comment Patient has refused COVID test, treating him as if he is COVID positive. Review Status In Process Next Review Type Continued Stay Review
--- NOTE | 2021-03-31 11:55 | PC.NURSE ---
Day shift: Paperwork signed and all questions answered. Pt has all personal belongings. Pt stated my leg looks better today. MD scripts sent to Pt's pharmacy. Pt instructed to take all antibiotics until they are gone and even if feeling better and leg looking better. Pt was agreeable to this. Taken to car that his friend is driving in [place] by this process description writer at approx 1200. Pt also instructed to come back to ED if leg does not improve in the next 7 days or if he has ongoing nausea and vomiting. Signs/symptoms of infection in the d/c paperwork.
--- NOTE | 2021-03-31 20:14 | P.DS_ITS ---
History of Present Illness History of Present Illness Chief complaint: Left Knee/Leg Pain and Swelling Narrative: Mr. Yu is a 50M who states he has no medical history, taking no medications, who presents to the ED with one day of left leg swelling, pain, redness, and warmth. He states he has had pain in the back of his kneed for a year. However the pain today was dramatically different. He has no fevers/chills . He has no trauma. No chest pain, shortness of breath, cough, nausea, vomiting, abdominal pain, dysuria. He has been able to flex then knee but he does have pain when he does so, he is able to walk on the leg as well. In the ED, workup was done temperate 102.2, tachy in the 110s, blood pressure in the 90s systolic, O2 sats normal. Labs notable for WBC 19, hgb 14.7, plt 170. Na 135, creatinine 1.09. Lactate 2.2, procal 7.25. CRP 3.2. CT of his left extremity showed suprapatellar joint effusion, thick subcutanoeus skin swelling, and arthritis of the left knee. Ultrasound was negative for DVT. Bursa was tapped in the ED. He was ordered IV fluid and antibiotics. He was admitted for further treatment. Discharge Providers Provider Date of admission: 03/30/21 20:33 Discharge Date: 03/31/21 Discharge provider: Jarad Godwin MD Summary Hospital Course Discharge Diagnosis: 1. Acute cellulitis of left lower extremity 2. Suprapatellar bursitis of left knee, not septic bursitis 3. Left knee OA Patient got admitted and treated with IV vancomycin with improvement of erythema and discomfort in the leg. He did decline to get admission COVID test. He was sufficiently improved where he could discharge on oral antibiotics. Time Spent with Patient Time spent: Less than 30 minutes Exam Vital Signs (past 8 hours): Oxygen Delivery Method Room Air Oxygen Flow Rate 0 Narrative Exam Narrative: Patient is alert and in no distress. Extremities: Decreased erythema and swelling of the left leg Objective Labs Result Diagrams: 03/31/21 05:30 03/31/21 05:30 Labs: Laboratory Results - last 24 hr 03/30/21 03/30/21 03/31/21 20:25 20:34 05:30 WBC 14.2 H RBC 4.45 L Hgb 12.9 L Hct 38.5 L MCV 86.4 MCH 28.9 MCHC 33.5 RDW 13.1 Plt Count 169 Neut % (Auto) 90.9 H Lymph % (Auto) 6.2 L [place] % (Auto) 2.6 L Eos % (Auto) 0.1 L Baso % (Auto) 0.2 Neut # (Auto) 33131 H Lymph # (Auto) 900 L [place] # (Auto) 400 Eos # (Auto) 0 Baso # (Auto) 0 Sodium Potassium Chloride Carbon Dioxide BUN Creatinine Estimated GFR BUN/Creatinine Ratio Glucose Lactate 1.1 Calcium Fluid Color Red Fluid Appearance Cloudy Fluid RBC 028009 Fld Tot Nucleated Cell 76972 Fluid Polynuclear WBCs 88 Fluid Mononuclear WBCs 12 Fluid Eosinophils 0 Fluid Other Cells 0 Body Fluid Clot No clots present Fluid Glucose < 20 Fluid Total Protein 2.8 03/31/21 05:30 WBC RBC Hgb Hct MCV MCH MCHC RDW Plt Count Neut % (Auto) Lymph % (Auto) [place] % (Auto) Eos % (Auto) Baso % (Auto) Neut # (Auto) Lymph # (Auto) [place] # (Auto) Eos # (Auto) Baso # (Auto) Sodium 134 L Potassium 3.5 Chloride 103 Carbon Dioxide 29 BUN 14 Creatinine 1.15 Estimated GFR > 60.0 BUN/Creatinine Ratio 12.2 Glucose 96 Lactate Calcium 8.1 L Fluid Color Fluid Appearance Fluid RBC Fld Tot Nucleated Cell Fluid Polynuclear WBCs Fluid Mononuclear WBCs Fluid Eosinophils Fluid Other Cells Body Fluid Clot Fluid Glucose Fluid Total Protein PFSH Social History household members: spouse Smoking Status: Current every day smoker Discharge Plan Discharge Plan Patient Disposition: Home Provider Discharge Comment: Take oral antibiotics. Return to ED for worsening appearance of cellulitis, fever or shaking chills. Discharge orders & Medications Prescriptions: New sulfamethoxazole-trimethoprim [Bactrim DS] 800-160 mg tablet 1 tab PO BID Qty: 20 RF: 0 doxycycline hyclate 100 mg tablet 100 mg PO BID Qty: 20 RF: 0 Diet/Activity/Treatments Diet: Regular Visit Report/Discharge Packet Instructions: DI for Cellulitis -- Adult, Cellulitis, How to Use Antibiotics Wisely Discharge Data Attending Provider: Ryland Wilson VTE Deep Vein Thrombosis/Pulmonary Embolism Present on Admission: Yes
== END 2021-03-31 12:00 | disposition home or self-care (01) ==
LOC: ED 16:57 → AC 20:36
PROVIDERS: Emergency Medicine; Admitting Provider Internal Medicine; Emergency Provider Student in an Organized Health Care Education/Training Program; Referring Provider Student in an Organized Health Care Education/Training Program; Visit Provider Internal Medicine
DX: L03.116 Cellulitis of left lower limb (principal); M70.52 Other bursitis of knee, left knee; M17.12 Unilateral primary osteoarthritis, left knee; F17.210 Nicotine dependence, cigarettes, uncomplicated
CPT/HCPCS: 20610; 36415; 71045; 73700; 80048; 80053; 82945; 83605; 83690; 84145; 84157; 85025; 85651; 86140; 87040; 87070; 87075; 87077; 87147; 87205; 89051; 93971; 94760; 96361; 96365; 96366; 96368; 96372; 96375; 96376; 99284; 99406; G0378; J1650; J1885; J2270; J2543

== ENCOUNTER 2022-05-05 16:22 | Inpatient (IN) | payer SELFPAY ==
[2021-03-30 22:42] VITALS: BMI 29.8
[2022-05-05 16:28] VITALS: BP 123/70; PULSE 98; RESP 20; TEMP 37.5; O2SAT 100
--- NOTE | 2022-05-05 16:32 | DI.RAD.S_ITS ---
PROCEDURE: XR CHEST 1V INDICATIONS: suspected sepsis TECHNIQUE: One view of the chest was acquired. COMPARISON: Located Within [facility], CR, XR CHEST 1V, 03/30/2021, 16:57. FINDINGS: Surgical changes and devices: None. Lungs and pleura: Minimal left basilar opacity present. No pleural effusions or pneumothorax. Mediastinum: Mediastinal contours appear normal. Heart size is normal. Bones and chest wall: No suspicious bony lesions. Overlying soft tissues appear unremarkable. IMPRESSION: Minimal patchy left basilar opacity present could represent atelectasis, but aspiration or pneumonia are possible in the appropriate clinical setting. Dictated by: Dimas Aragon M.D. on 05/05/2022 at 18:13 Approved by: Dimas Aragon M.D. on 05/05/2022 at 18:14
--- NOTE | 2022-05-05 16:34 | DI.US.S_ITS ---
PROCEDURE: [facility] VENOUS LOW EXTREM LT INDICATIONS: PAIN/SWELLING TECHNIQUE: Real-time imaging, as well as color and pulse Doppler interrogation, were performed of the lower extremity deep veins from the inguinal ligament to the popliteal fossa. COMPARISON: [facility], , [facility] VENOUS LOW EXTREM LT, 03/30/2021, 18:14. FINDINGS: The common femoral, femoral and popliteal veins are normally compressible, and free of intraluminal thrombus. Color and pulse Doppler demonstrate normal phasic intraluminal flow. There is normal augmentation response to distal compression maneuver. Numerous left groin lymph nodes are seen, with enlargement, with thickening of the cortex. The largest measures 12 mm in short axis. IMPRESSION: Negative for deep venous thrombosis. Abnormally enlarged left groin lymph nodes are again seen. Dictated by: Joel Golden M.D. on 05/05/2022 at 16:43 Approved by: Joel Golden M.D. on 05/05/2022 at 16:43
[2022-05-05 16:58] LABS: Add Manual Diff / Slide Review NO; Basophils Absolute Auto 0 /uL (0-100); Basophils Percent Auto 0.3 % (0-2); Eosinophils Absolute Auto 100 /uL (0-450); Eosinophils Percent Auto 0.3 % (2-4); Hematocrit 42.5 % (41-53); Hemoglobin 14.5 g/dL (13.5-17.5); Lymphocytes Absolute Auto 1100 /uL (1100-4500); Lymphocytes Percent Auto 7.1 % (25-40); Mean Corpuscular HGB Conc 34.2 % (30-36); Mean Corpuscular Hemoglobin 29.2 PG (26-34); Mean Corpuscular Volume 85.4 fL (80-100); Monocytes Absolute Auto 1000 /uL (0-900); Monocytes Percent Auto 6.1 % (3-14); Neutrophils Absolute Auto 13500 /uL (1500-7000); Neutrophils Percent Auto 86.2 % (50-75); Platelet Count 226 X10^3/uL (150-400); Red Blood Cell Count 4.97 X10^6/uL (4.5-5.9); Red Cell Distribution Width 13.3 % (11.6-14.8); White Blood Cell Count 15.7 X10^3/uL (4.5-11.0)
[2022-05-05 17:11] LABS: Alanine Aminotransferase 25 IU/L (<50); Albumin 4.4 g/dL (3.5-5.0); Albumin Globulin Ratio 1.2 (1.0-2.8); Alkaline Phosphatase 83 U/L (38-126); Aspartate Aminotransferase 25 IU/L (17-59); BUN Creatinine Ratio 12.4 (6-22); Bilirubin Total 0.9 mg/dL (0.2-1.3); Blood Urea Nitrogen 13 mg/dL (9-20); Calcium 9.3 mg/dL (8.4-10.2); Carbon Dioxide 31 mmol/L (22-32); Chloride 96 mmol/L (98-107); Estimated Glomerular Filt Rate > 60 mL/min (>60); Globulin 3.6 g/dL (1.7-4.1); Glucose 120 mg/dL (70-100); HEMOLYSIS < 15 (0-50); Lipase 78 U/L (23-300); Sodium 137 mmol/L (137-145)
[2022-05-05 17:12] LABS: Lactate (Lactic Acid) 1.5 mmol/L (0.7-2.1)
[2022-05-05 17:27] LABS: Procalcitonin 0.13 ng/mL (<0.5)
--- NOTE | 2022-05-05 18:46 | ED_ITS ---
HPI - Skin/Abscess/Foreign Bdy General Chief complaint: Skin/Abscess/Foreign Body Stated complaint: something wrong with left leg Time Seen by Provider: 05/05/22 18:27 Source: patient Mode of arrival: Wheelchair History of Present Illness HPI narrative: Patient is a 51-year-old male without past medical history presenting today with left leg swelling and redness. He was admitted almost 1 year ago for the same. Today he feels like he has new redness and swelling posterior his the. He has not had any fever or chills he feels weak he is in severe pain he feels like it is rubbing on his pants. He has had chronic left leg swelling. His calf has been red for a year. The new part is posterior knee and thigh. Related Data Previous Rx's Medication Instructions Recorded doxycycline hyclate 100 mg tablet 100 mg PO BID #20 tabs 03/31/21 sulfamethoxazole 800 1 tab PO BID #20 tabs 03/31/21 mg-trimethoprim 160 mg tablet (Bactrim DS) Allergies Allergy/AdvReac Type Severity Reaction Status Date / Time No Known Drug Allergies Allergy Verified 03/30/21 20:21 Review of Systems Review of Systems Narrative: GENERAL: Denies chills, fatigue, malaise, fever, sweats, travel HEENT: Denies sinus pain, ear pain, sore throat, difficulty swallowing, neck pain RESPIRATORY: Denies dyspnea, cough, wheezing, hemoptysis, sputum. CARDIOVASCULAR: Denies chest pain, palpitations, orthopnea, edema GASTROINTESTINAL: Denies nausea, vomiting, abdominal pain, diarrhea, constipation, melena. : Denies dysuria, frequency, incontinence, hematuria, urinary retention, flank pain. MUSCULOSKELETAL: Denies weakness, joint pain, or bony pain SKIN: See HPI NEUROLOGIC: Denies weakness, dizziness, headache, numbness, change in speech, confusion PSYCHIATRIC: No concerning psychosocial issues. 12 point review of systems is negative except for those stated above and HPI Patient History Social History household members: spouse Smoking Status: Current every day smoker alcohol intake: current Smoking Status: Current every day smoker Substance Use Type: does not use Exam Initial Vital Signs Initial Vital Signs: Vital Signs Temperature 99.5 F 05/05/22 16:28 Pulse Rate 98 H 05/05/22 16:28 Respiratory Rate 20 11/09/22 16:28 Blood Pressure 123/70 05/05/22 16:28 Pulse Oximetry 100 05/05/22 16:28 Oxygen Delivery Method 05/05/22 16:28 GENERAL: Alert 51-year-old male appears older than stated age at is uncomfortable and in no acute distress. HEENT: Head atraumatic,EOMI, pupils reactive, face symmetric, moist mucous mem branes CARDIOVASCULAR: Regular rate and rhythm without murmurs, rubs or gallops. RESPIRATORY: Breath sounds equal bilaterally, no wheezes rales or rhonchi. ABDOMEN: Soft, nontender. Normoactive bowel sounds all 4 quadrants. No guarding or rebound. EXTREMITIES: Normal range of motion, no clubbing or edema. Neurovascularly intact NEUROLOGICAL: Alert and oriented x4.Normal gait and speech. SKIN: Left leg calf mildly erythematous however there is swelling and erythema, significant erythema posterior knee and left upper calf. Course Orders Ordered: ED Orders 05/05/22 18:43 EKG-12 Lead Stat 05/05/22 19:08 Blood Culture Stat 05/05/22 19:29 COVID19 -Nasal RAPID/Pre-Proc Stat 05/05/22 19:40 Urine Drug Screen, Rapid Stat Acetaminophen (Acetaminophen 325 Mg Tablet) 650 mg PO Q6H PRN PRN Reason: Fever/Mild Pain (1-3) Enoxaparin Sodium (Enoxaparin 40 Mg/0.4 Ml Syringe) 40 mg SUBCUT DAILY [facility] Sodium Chloride (Normal Saline 0.9%) 1,000 mls @ 100 mls/hr IV CONT SARAH Last Admin: 05/06/22 00:35 Dose: 100 mls/hr Documented By: MS Vancomycin HCl/Dextrose (Vancomycin) 1,500 mg in 300 mls @ 200 mls/hr IV Q12H [facility] Ketorolac Tromethamine (Ketorolac 30 Mg/Ml Vial) 30 mg IV Q6H PRN PRN Reason: Pain, Severe (1-10)/Fever Stop: 05/10/22 20:23 Naloxone HCl (Naloxone 0.4 Mg/Ml Vial) 0.2 mg IV Q2MIN PRN PRN Reason: Opiate Reversal Ondansetron HCl (Ondansetron 4 Mg/2 Ml Inj) 4 mg IV Q4HR PRN PRN Reason: Nausea And Vomiting Vancomycin HCl (Vancomycin Per Pharmacy) 1 request MISC NOW ONE Stop: 05/05/22 20:21 Discontinued Medications Sodium Chloride (Normal Saline 0.9%) 1,000 mls @ 1,000 mls/hr IV BOLUS ONE Stop: 05/05/22 17:31 Last Infusion: 05/05/22 20:30 Dose: 1,000 mls/hr Documented By: Admin: 05/05/22 19:11 Dose: 1,000 mls/hr Documented By: MAURA Ceftriaxone Sodium 2,000 mg/ (Sodium Chloride) 100 mls @ 200 mls/hr IV NOW ONE Stop: 05/05/22 19:05 Last Infusion: 05/05/22 19:50 Dose: 0 mls/hr Documented By: Admin: 05/05/22 19:17 Dose: 200 mls/hr Documented By: MAURA Vancomycin HCl/Dextrose (Vancomycin) 1,500 mg in 300 mls @ 200 mls/hr IV NOW ONE Stop: 05/05/22 20:33 Last Infusion: 05/05/22 20:30 Dose: 200 mls/hr Documented By: Admin: 05/05/22 19:45 Dose: 200 mls/hr Documented By: FRANCES Ketorolac Tromethamine (Ketorolac 30 Mg/Ml Vial) 15 mg IV NOW ONE Stop: 05/05/22 18:58 Last Admin: 05/05/22 19:11 Dose: 15 mg Documented By: MAURA Vital Signs Vital signs: Vital Signs - 8 hr 05/05/22 16:28 Temperature 99.5 F Pulse Rate 98 H Respiratory Rate 20 Blood Pressure 123/70 Pulse Oximetry 100 Oxygen Delivery Method Room Air MDM - Skin/Abscess/Foreign Bdy Lab Data Result diagrams: 05/05/22 16:46 05/05/22 16:46 Labs: Lab Results 05/05/22 05/05/22 05/05/22 Range/Units 16:46 16:46 16:46 WBC 15.7 H (4.5-11.0) X10^3/uL RBC 4.97 (4.5-5.9) X10^6/uL Hgb 14.5 (13.5-17.5) g/dL Hct 42.5 (41-53) % MCV 85.4 (80-100) fL MCH 29.2 (26-34) PG MCHC 34.2 (30-36) % RDW 13.3 (11.6-14.8) % Plt Count 226 (150-400) X10^3/uL Neut % (Auto) 86.2 H (50-75) % Lymph % (Auto) 7.1 L (25-40) % [place] % (Auto) 6.1 (3-14) % Eos % (Auto) 0.3 L (2-4) % Baso % (Auto) 0.3 (0-2) % Neut # (Auto) 19966 H (8196-8871) /uL Lymph # (Auto) 1100 (2107-2179) /uL [place] # (Auto) 1000 H (0-900) /uL Eos # (Auto) 100 (0-450) /uL Baso # (Auto) 0 (0-100) /uL ESR (0-15) MM/HR Sodium 137 (137-145) mmol/L Potassium 4.0 (3.4-5.1) mmol/L Chloride 96 L (98-107) mmol/L Carbon Dioxide 31 (22-32) mmol/L BUN 13 (9-20) mg/dL Creatinine 1.05 (0.66-1.25) mg/dL Estimated GFR > 60 (>60) mL/min BUN/Creatinine Ratio 12.4 (6-22) Glucose 120 H (70-100) mg/dL Lactate 1.5 (0.7-2.1) mmol/L Calcium 9.3 (8.4-10.2) mg/dL Total Bilirubin 0.9 (0.2-1.3) mg/dL AST 25 (17-59) IU/L ALT 25 (<50) IU/L Alkaline Phosphatase 83 (38-126) U/L C-Reactive Protein (<1.0) mg/dL Total Protein 8.0 (6.3-8.2) g/dL Albumin 4.4 (3.5-5.0) g/dL Globulin 3.6 (1.7-4.1) g/dL Albumin/Globulin Ratio 1.2 (1.0-2.8) Lipase 78 (23-300) U/L Procalcitonin 0.13 (<0.5) ng/mL SARS-CoV-2 (PCR) (Negative) 05/05/22 05/05/22 05/05/22 Range/Units 16:46 16:46 19:29 WBC (4.5-11.0) X10^3/uL RBC (4.5-5.9) X10^6/uL Hgb (13.5-17.5) g/dL Hct (41-53) % MCV (80-100) fL MCH (26-34) PG MCHC (30-36) % RDW (11.6-14.8) % Plt Count (150-400) X10^3/uL Neut % (Auto) (50-75) % Lymph % (Auto) (25-40) % [place] % (Auto) (3-14) % Eos % (Auto) (2-4) % Baso % (Auto) (0-2) % Neut # (Auto) (1709-7251) /uL Lymph # (Auto) (8635-4795) /uL [place] # (Auto) (0-900) /uL Eos # (Auto) (0-450) /uL Baso # (Auto) (0-100) /uL ESR 5 (0-15) MM/HR Sodium (137-145) mmol/L Potassium (3.4-5.1) mmol/L Chloride (98-107) mmol/L Carbon Dioxide (22-32) mmol/L BUN (9-20) mg/dL Creatinine (0.66-1.25) mg/dL Estimated GFR (>60) mL/min BUN/Creatinine Ratio (6-22) Glucose (70-100) mg/dL Lactate (0.7-2.1) mmol/L Calcium (8.4-10.2) mg/dL Total Bilirubin (0.2-1.3) mg/dL AST (17-59) IU/L ALT (<50) IU/L Alkaline Phosphatase (38-126) U/L C-Reactive Protein 2.2 H (<1.0) mg/dL Total Protein (6.3-8.2) g/dL Albumin (3.5-5.0) g/dL Globulin (1.7-4.1) g/dL Albumin/Globulin Ratio (1.0-2.8) Lipase (23-300) U/L Procalcitonin (<0.5) ng/mL SARS-CoV-2 (PCR) Negative (Negative) Imaging Data Chest x-ray: Radiologist's Impression: MEJIA Horta [id number] XRay Report Signed Patient: Maximiliano Yu MR#: [id number] : 1970 Acct:[id number] Age/Sex: 51 / M Date of Service: 05/05/22 Loc: ED Accession Number: [id number] ?? Procedure: XR chest 1V Ordering Provider: Linus Grubbs D.O. PROCEDURE:? XR CHEST 1V ? INDICATIONS:? suspected sepsis ? TECHNIQUE:? One view of the chest was acquired.? ? COMPARISON:? [facility], XR CHEST 1V, 03/30/2021, 16:57. ? FINDINGS:? ? Surgical changes and devices:? None.? ? Lungs and pleura:? Minimal left basilar opacity present.? No pleural effusions or pneumothorax.? ? Mediastinum:? Mediastinal contours appear normal.? Heart size is normal.? ? Bones and chest wall:? No suspicious bony lesions.? Overlying soft tissues appear unremarkable.? ? IMPRESSION:? Minimal patchy left basilar opacity present could represent atelectasis, but aspiration or pneumonia are possible in the appropriate clinical setting.? ? ? Dictated by: Dimas Aragon M.D. on 05/05/2022 at 18:13 ? US - DVT: Radiologist's Impression: Ultrasound Report Signed Patient: Maximiliano Yu MR#: [id number] : 1970 Acct:[id number] Age/Sex: 51 / M Date of Service: 05/05/22 Loc: ED Accession Number: [id number] ?? Procedure: US periph venous low extrem lt Ordering Provider: Linus Grubbs D.O. PROCEDURE:? US PERIPH VENOUS LOW EXTREM LT ? INDICATIONS:? PAIN/SWELLING ? TECHNIQUE:? Real-time imaging, as well as color and pulse Doppler interrogation, were performed of the lower extremity deep veins from the inguinal ligament to the popliteal fossa.? ? COMPARISON:? [facility], US PERIPH VENOUS LOW EXTREM LT, 03/30/2021, 18:14. ? FINDINGS:? The common femoral, femoral and popliteal veins are normally comp ressible, and free of intraluminal thrombus.? Color and pulse Doppler demonstrate normal phasic intraluminal flow.? There is normal augmentation response to distal compression maneuver. ? ? Numerous left groin lymph nodes are seen, with enlargement, with thickening of the cortex.? The largest measures 12 mm in short axis. ? ? IMPRESSION:? ? Negative for deep venous thrombosis. ? Abnormally enlarged left groin lymph nodes are again seen. ? ? Dictated by: Joel Golden M.D. on 05/05/2022 at 16:43? ECG Data Interpretation: Normal sinus rhythm rate 98 IL interval 172 QRS [address] changes MDM Narrative Medical decision making narrative: Patient has history of significant left lower extremity cellulitis. Today seems to be a little bit worse. New area of erythema is overall extremely tender I do not appreciate any obvious abscess or drainage. His he does have leukocytosis of 15 he is afebrile. Procalcitonin 0.13 and lactic acid is 1.5. No sign of severe sepsis sepsis fluids are not given he is not hypotensive. Minimally tach ycardic heart rate 102 at the highest. Patient is in quite a bit of pain. He is given Rocephin and vancomycin empirically. [facility] accepts patient Discharge Plan Departure Patient Disposition: Admitted As Inpatient Clinical Impression: Cellulitis Admit Date/Time: 05/05/22 19:49 Admit Provider: Shana Shaikh
--- NOTE | 2022-05-05 18:59 | PC.NURSE ---
Pt has diffuse redness and swelling of the LLE from top of foot to 3 inches behind knee. pt states chronically going on x 1 year. decided to come in today due to the redness spreading up the back of L thigh and intense pain. mildly tachycardic at 103 and shivering. afebrile 98.5 oral. IV placed, labs drawn, BC x 1, fluids infusing and medicating for pain.
[2022-05-05] MEDS: SODIUM CHLORIDE 0.9% 1,000 ML 1000 ML IV (19:11)
[2022-05-05] MEDS: KETOROLAC 30 MG/ML VIAL 15 MG IV (19:11)
[2022-05-05] MEDS: cefTRIAXone 2,000 MG in SODIUM CHLORIDE 0.9% 100 ML 200 MG IV (19:17)
[2022-05-05] MEDS: VANCOMYCIN 1,500 MG/300 ML PIGGYBACK 200 MG IV (19:45)
[2022-05-05 19:51] LABS: COVID19 -Nasal RAPID Negative (Negative)
[2022-05-05 20:25] VITALS: BP 106/65; PULSE 102; RESP 17; TEMP 37.5; O2SAT 95
--- NOTE | 2022-05-05 20:25 | P.HP_ITS ---
History of Present Illness History of Present Illness Date Patient Seen: 05/05/22 Time Patient Seen: 20:26 Chief complaint: something wrong with left leg Narrative: Maximiliano Yu is a 51-year-old male with a medical history of prior left lower extremity cellulitis 2020, left knee osteoarthritis, takes no medications who presented to the ED complaining of ?left leg swelling and redness.? He was admitted almost 1 year ago for the same.? Today he feels like he has new redness and swelling posterior his left thigh.? He denies chest pain, shortness breath, fever, body aches, chills he feels weak he is in severe pain he feels like it is rubbing on his pants.? He has had chronic left leg swelling, with redness, worse in the ankle since the 2020 cellulitis, the posterior knee and thigh pain, redness, and swelling is new onset and what brought him in tonight. 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 Patient denies abdominal pain nausea, vomiting, diarrhea, constipation, urinary symptoms, skin injuries, infections, taking any recreational substances, no falls or hitting his head or loss of consciousness, does not take any medicatio ns. Patient reports that he drank heavily until 6 years ago, now drinks maybe once or twice a year, is a daily smoker. Patient denies any family history of any blood/vascular disorders, or cancers. Patient's body has no signs of IV drug use. Cause of recurrent cellulitis is unknown. In ED patient presented with temp 99.5?, heart rate of 100 and respiratory rate of 20, on admit temp continues 99.5, BP 123/70, HR 98, R 20, O2 saturation 100% on room air. It should be noted that patient was severely lethargic upon admit exam and only responded to sternal rub, patient denies any substance use, tox screen ordered-it appears he may just be very sensitive to the 15 mg of Toradol IV he was given in ED. he was not given any other pain medication, white blood cell count 15.7 with a left shift neutrophils 13,500, mono 1000, chemistry and liver panels are within normal limits, procalcitonin, lipase, lactate are WNL. Sofa score: 0, EKG normal sinus rhythm with a rate of [address] or T-wave changes, chest x-ray minimal patchy left basilar opacity-possible atelectasis or aspiration pneumonia. Left lower extremity ultrasound: Negative for deep venous thrombosis, with abnormally enlarged left groin lymph nodes. Patient admitted for acute cellulitis versus erysipelas left lower leg, recurrent, with lymphadenitis. Patient History Medical History History of cellulitis of skin with lymphangitis Tobacco use Comment: No surgical history Family & Social History Family History (Updated 05/06/22 @ 06:09 by Shana Shaikh [facility]) Father Diabetes mellitus Myocardial infarct CKD (chronic kidney disease) Mother Cancer Social History: household members spouse Tobacco & Substance use: Tobacco type cigarettes Smoking Status Current every day smoker Substance Use Type does not use Meds Home Medications and Allergies Home Medications Medication Instructions Recorded Confirmed Type doxycycline hyclate 100 mg tablet 100 mg PO BID #20 tabs 03/31/21 Rx sulfamethoxazole 800 1 tab PO BID #20 tabs 03/31/21 Rx mg-trimethoprim 160 mg tablet (Bactrim DS) Allergies Allergy/AdvReac Type Severity Reaction Status Date / Time No Known Drug Allergies Allergy Verified 03/30/21 20:21 Review of Systems Review of Systems Narrative: All 12 point systems reviewed with the patient and are negative except otherwise documented. Exam Vital Signs (past 8 hours): - 05/05/22 16:28 Temperature 99.5 F Pulse Rate 98 H Respiratory Rate 20 Blood Pressure 123/70 Pulse Oximetry 100 Oxygen Delivery Method Room Air Oxygen Delivery Method Room Air Narrative Exam Narrative: General: Patient is a well-developed, well-nourished male, whose parents appears older than stated age skin very weathered from significant sun exposure, in no distress at this time. Patient required sternal rub to wake him. HEENT: Normocephalic, atraumatic, extraocular muscles intact, oral pharynx is clear and mucous membranes are moist. Neck is supple and symmetric, trachea is midline, no adenopathy, no thyroid enlargement, nontender, no masses palpated. Negative for JVD Chest: Normal AP diameter and contour without kyphoscoliosis, no nasal flaring, retractions, or tachypneic labored Lungs: Auscultation of all lung bang are clear without adventitious sounds, wheezes, rhonchi, or rales. Cardio: S1 & S2 with regular rate and rhythm without murmur, rubs, or gallops, no carotid bruit, no cardiac pulsations present. Abdomen: Soft nontender, negative for organomegaly, or masses. Bowel sounds are present in all 4 quadrants without guarding or rebound, no CVA tenderness. Musculoskeletal: Muscle strength and tone are equal within normal limits, no deformity, crepitus, effusions, cyanosis, clubbing or edema present. Full range of motion intact radial and pedal pulses are normal. Skin: Left leg calf mildly erythematous however there is swelling and erythema, significant erythema posterior knee and left upper thigh, edema greatest in the left ankle, Bilateral lower extremity edema left greater than right, right displays no erythema. Found no broken skin, open skin, injury or drainage. Patient's bilateral hands appear chronically edematous and erythematous/hy perpigmented in color as well Left mid calf 47 cm, ankle 32/right mid calf 45 cm, ankle 27. Unable to palpate left groin lymphadenopathy, patient had no pain or discomfort bilateral groins with palpation. Neuro: Alert and orientated x3, strength is +5/5 in all extremities, sensation to touch intact, no gross deficits noted of cranial nerves. Psych: Patient has a well-kept appearance, appropriate affect, mental status attitude thought context and judgment are appropriate for age. Objective Labs Result Diagrams: 05/05/22 16:46 05/05/22 16:46 Labs: Laboratory Results - last 24 hr 05/05/22 05/05/22 05/05/22 16:46 16:46 16:46 WBC 15.7 H RBC 4.97 Hgb 14.5 Hct 42.5 MCV 85.4 MCH 29.2 MCHC 34.2 RDW 13.3 Plt Count 226 Neut % (Auto) 86.2 H Lymph % (Auto) 7.1 L [place] % (Auto) 6.1 Eos % (Auto) 0.3 L Baso % (Auto) 0.3 Neut # (Auto) 10200 H Lymph # (Auto) 1100 [place] # (Auto) 1000 H Eos # (Auto) 100 Baso # (Auto) 0 Sodium 137 Potassium 4.0 Chloride 96 L Carbon Dioxide 31 BUN 13 Creatinine 1.05 Estimated GFR > 60 BUN/Creatinine Ratio 12.4 Glucose 120 H Lactate 1.5 Calcium 9.3 Total Bilirubin 0.9 AST 25 ALT 25 Alkaline Phosphatase 83 Total Protein 8.0 Albumin 4.4 Globulin 3.6 Albumin/Globulin Ratio 1.2 Lipase 78 Procalcitonin 0.13 SARS-CoV-2 (PCR) 05/05/22 19:29 WBC RBC Hgb Hct MCV MCH MCHC RDW Plt Count Neut % (Auto) Lymph % (Auto) [place] % (Auto) Eos % (Auto) Baso % (Auto) Neut # (Auto) Lymph # (Auto) [place] # (Auto) Eos # (Auto) Baso # (Auto) Sodium Potassium Chloride Carbon Dioxide BUN Creatinine Estimated GFR BUN/Creatinine Ratio Glucose Lactate Calcium Total Bilirubin AST ALT Alkaline Phosphatase Total Protein Albumin Globulin Albumin/Globulin Ratio Lipase Procalcitonin SARS-CoV-2 (PCR) Negative Assessment & Plan Assessment & Plan narrative: 1. Cellulitis verses Erysipelas, of left leg, acute, recurrent, with lymphadenopathy, acute, present on admission -has erythema, tenderness, warmth of left leg, behind less knee and left thigh with what appears to be a shearing injury or pressure sore. -left mid calf 47 cm, ankle 32. Right mid calf 45 cm, ankle 27 -temp 99.5?, HR100, RR 20, -admit 99.5, BP 123/70, HR 98, R 20, O2 saturation 100% on room air. -white blood cell count 15.7 with a left shift neutrophils 13,500, mono 1000 -procalcitonin, lipase, lactate are WNL. Sofa score: 0, -Left lower extremity ultrasound: Negative for deep venous thrombosis, with abnormally enlarged left groin lymph nodes. -pain/fever management-use pain medication including Toradol modestly-patient easily over-sedated -ordered CRP, ESR, tox screen, UA, MRSA -patient given Rocephin and vancomycin in ED -for coverage of beta-hemolytic strep and MRSA patient is started on vancomycin -NS at 100 cc/HR -elevate extremity as needed for comfort and swelling, ice packs as needed -wound care consult ordered, dietary consult ordered -recommend after evaluation by wound care -PT/OT evaluation -doubt septic arthritis as has good range of motion -blood cultures pending 2. History of bilateral knee osteoarthritis, chronic, present on admission -managed by PCP 3. Tobacco use, acute on chronic, present on admission -patient provided education regarding tobacco cessation -offered nicotine patch-patient refused at this time. Code: Full Surrogate decision maker: Kwesi Yu, spouse COVSHU PCR: Negative DVT/VTE prophylaxis: Lovenox and SCDs Disposition: Patient admitted for observation expected length of stay less than 2 midnights I have utilized all available immediate resources to obtain, update, or review the patient's current medications. I confirmed that the patient's advanced care plan is present, Code status is documented and/or surrogate decision maker is listed in the patient's medical record. I have personally reviewed patient's chart notes from PCP, specialists, diagnostic imaging, and laboratory, Time Spent With Patient Critical Care time: I spent a total of [] minutes of critical care time on this patient's care today; this time is exclusive of procedural time.
[2022-05-05 20:28] VITALS: BMI 31.6
[2022-05-05 20:46] LABS: C-Reactive Protein Quant 2.2 mg/dL (<1.0)
[2022-05-05 21:40] LABS: Erythrocyte Sedimentation Rate 5 MM/HR (0-15)
[2022-05-06] VITALS: BP 108/73; PULSE 85; RESP 18; TEMP 36.3; O2SAT 93
[2022-05-06] MEDS: SODIUM CHLORIDE 0.9% 1,000 ML 100 ML IV ×2 (00:35→13:55)
[2022-05-06 05:45] VITALS: BP 110/71; PULSE 86; RESP 18; TEMP 36.5; O2SAT 95
[2022-05-06 07:07] LABS: Add Manual Diff / Slide Review NO; Basophils Absolute Auto 100 /uL (0-100); Basophils Percent Auto 0.6 % (0-2); Eosinophils Absolute Auto 100 /uL (0-450); Eosinophils Percent Auto 1.4 % (2-4); Hemoglobin 13.3 g/dL (13.5-17.5); Lymphocytes Absolute Auto 1800 /uL (1100-4500); Mean Corpuscular HGB Conc 34.1 % (30-36); Monocytes Absolute Auto 700 /uL (0-900); Monocytes Percent Auto 6.7 % (3-14); Neutrophils Absolute Auto 7700 /uL (1500-7000); Neutrophils Percent Auto 74.3 % (50-75); Platelet Count 197 X10^3/uL (150-400); Red Blood Cell Count 4.59 X10^6/uL (4.5-5.9); Red Cell Distribution Width 13.2 % (11.6-14.8); White Blood Cell Count 10.4 X10^3/uL (4.5-11.0)
[2022-05-06 07:13] LABS: BUN Creatinine Ratio 12.1 (6-22); Blood Urea Nitrogen 12 mg/dL (9-20); Calcium 7.7 mg/dL (8.4-10.2); Carbon Dioxide 25 mmol/L (22-32); Chloride 106 mmol/L (98-107); Estimated Glomerular Filt Rate > 60 mL/min (>60); Glucose 102 mg/dL (70-100); HEMOLYSIS < 15 (0-50); Potassium 3.9 mmol/L (3.4-5.1); Sodium 134 mmol/L (137-145)
--- NOTE | 2022-05-06 08:37 | PM.PN.1 ---
Subjective Subjective Date Patient Seen: 05/06/22 Time Patient Seen: 14:06 Interval history: at bedside. Questions were answered about patient's chronic LE swelling likely being venous stasis due to vein insufficiency. Cellulitis improving. Exam Vital Signs (past 8 hours): - 05/06/22 05:45 Temperature 97.7 F Pulse Rate 86 Respiratory Rate 18 Blood Pressure 110/71 Pulse Oximetry 95 Oxygen Flow Rate 0 Oxygen Delivery Method Room Air Oxygen Flow Rate 0 Narrative Exam Narrative: GEN: no acute distress, frustrated HEENT: moist mucous membranes, PERRL NECK: trachea midline, no JVD CV: regular rate and rhythm, no murmurs PULM: clear bilaterally ABD: soft, nontender, nondistended, no organomegaly EXT: bilateral LE swelling, no drianage or erythema except for L posterior and medial thigh, no fluctuance NEURO: awake, alert, oriented, no focal deficits Objective Labs Result Diagrams: 05/06/22 06:50 05/06/22 06:50 Labs: Laboratory Results - last 24 hr 05/05/22 05/05/22 05/05/22 16:46 16:46 16:46 WBC 15.7 H RBC 4.97 Hgb 14.5 Hct 42.5 MCV 85.4 MCH 29.2 MCHC 34.2 RDW 13.3 Plt Count 226 Neut % (Auto) 86.2 H Lymph % (Auto) 7.1 L [place] % (Auto) 6.1 Eos % (Auto) 0.3 L Baso % (Auto) 0.3 Neut # (Auto) 29807 H Lymph # (Auto) 1100 [place] # (Auto) 1000 H Eos # (Auto) 100 Baso # (Auto) 0 ESR Sodium 137 Potassium 4.0 Chloride 96 L Carbon Dioxide 31 BUN 13 Creatinine 1.05 Estimated GFR > 60 BUN/Creatinine Ratio 12.4 Glucose 120 H Lactate 1.5 Calcium 9.3 Total Bilirubin 0.9 AST 25 ALT 25 Alkaline Phosphatase 83 C-Reactive Protein Total Protein 8.0 Albumin 4.4 Globulin 3.6 Albumin/Globulin Ratio 1.2 Lipase 78 Procalcitonin 0.13 Nasal Screen MRSA (PCR) SARS-CoV-2 (PCR) 05/05/22 05/05/22 05/05/22 16:46 16:46 19:29 WBC RBC Hgb Hct MCV MCH MCHC RDW Plt Count Neut % (Auto) Lymph % (Auto) [place] % (Auto) Eos % (Auto) Baso % (Auto) Neut # (Auto) Lymph # (Auto) [place] # (Auto) Eos # (Auto) Baso # (Auto) ESR 5 Sodium Potassium Chloride Carbon Dioxide BUN Creatinine Estimated GFR BUN/Creatinine Ratio Glucose Lactate Calcium Total Bilirubin AST ALT Alkaline Phosphatase C-Reactive Protein 2.2 H Total Protein Albumin Globulin Albumin/Globulin Ratio Lipase Procalcitonin Nasal Screen MRSA (PCR) SARS-CoV-2 (PCR) Negative 05/05/22 05/06/22 05/06/22 21:00 06:50 06:50 WBC 10.4 RBC 4.59 Hgb 13.3 L Hct 39.0 L MCV 85.0 MCH 29.0 MCHC 34.1 RDW 13.2 Plt Count 197 Neut % (Auto) 74.3 Lymph % (Auto) 17.0 L [place] % (Auto) 6.7 Eos % (Auto) 1.4 L Baso % (Auto) 0.6 Neut # (Auto) 7700 H Lymph # (Auto) 1800 [place] # (Auto) 700 Eos # (Auto) 100 Baso # (Auto) 100 ESR Sodium 134 L Potassium 3.9 Chloride 106 Carbon Dioxide 25 BUN 12 Creatinine 0.99 Estimated GFR > 60 BUN/Creatinine Ratio 12.1 Glucose 102 H Lactate Calcium 7.7 L Total Bilirubin AST ALT Alkaline Phosphatase C-Reactive Protein Total Protein Albumin Globulin Albumin/Globulin Ratio Lipase Procalcitonin Nasal Screen MRSA (PCR) Negative for mrsa SARS-CoV-2 (PCR) PFSH Medical History History of cellulitis of skin with lymphangitis Tobacco use Family History (Updated 05/06/22 @ 06:09 by UNIQUE Norris-) Father Diabetes mellitus Myocardial infarct CKD (chronic kidney disease) Mother Cancer Social History household members: spouse Smoking Status: Current every day smoker alcohol intake: current Assessment & Plan Assessment & Plan narrative: 1. Left thigh Group A strep cellulitis/erysipelas, with lymphadenopathy, acute, present on admission -has erythema, tenderness, warmth of left leg, behind less knee and left thigh. failed outpatient oral abx therapy. -left mid calf 47 cm, ankle 32. Right mid calf 45 cm, ankle 27 -white blood cell count 15.7 on admission but improved to 10.4 -Left lower extremity ultrasound: Negative for deep venous thrombosis, with abnormally enlarged left groin lymph nodes. -for coverage of beta-hemolytic strep and MRSA patient is started on vancomycin -elevate LLE extremity to reduce swelling, ice packs as needed -recommend after evaluation by wound care -PT/OT evaluation -doubt septic arthritis as has good range of motion -blood cultures pending 2. History of bilateral knee osteoarthritis and chronic venous insufficiency, chronic, present on admission -managed by PCP with compression stockings but patient claims they do not help -recently saw ortho outpatient for possible left knee replacement -recommend PCP referral to outpatient vascular surgery to consider venous ablation 3. Tobacco use, acute on chronic, present on admission -patient provided education regarding tobacco cessation -offered nicotine patch-patient refused at this time. 4. Methamphamine abuse -patient very somnolent on admission -Utox positive for meth -encourage cessation Code: Full Surrogate decision maker: Kwesi Yu, spouse COVID PCR: Negative DVT/VTE prophylaxis: Lovenox and SCDs Disposition: Inpatient status secondary to failure of outpatient oral antibiotics requiring IV abx. Likely home in 1-2 days. Time Spent With Patient Critical Care time: I spent a total of [] minutes of critical care time on this patient's care today; this time is exclusive of procedural time. Quality VTE Deep Vein Thrombosis/Pulmonary Embolism Present on Admission: No
[2022-05-06] MEDS: ENOXAPARIN 40 MG/0.4 ML SYRINGE SUBCUT (08:52)
[2022-05-06] MEDS: VANCOMYCIN 1,500 MG/300 ML PIGGYBACK 200 MG IV ×2 (08:53→19:46)
[2022-05-06 09:39] LABS: Ethanol (ETOH) < 10 mg/dL
[2022-05-06 10:17] LABS: UR Morphine/Opiate cutoff 300 Negative (Negative); Ur Creatinine Normal (Normal); Ur Specific Gravity Normal (Normal); Urine Amphetamines Positive (Negative); Urine Cocaine Negative (Negative); Urine Tetrahydrocannabinol Negative (Negative); Urine pH Normal (Normal)
[2022-05-06 10:18] LABS: Urine Barbiturates Negative (Negative); Urine Benzodiazepines Negative (Negative); Urine MDMA Negative (Negative); Urine Methadone Negative (Negative); Urine Methamphetamines Positive (Negative); Urine Oxycodone Negative (Negative); Urine Phencyclidine Negative (Negative); Urine Tricyclic Antidepressant Negative (Negative)
[2022-05-06 12:00] VITALS: BP 127/80; PULSE 84; RESP 18; TEMP 37.1; O2SAT 97
--- NOTE | 2022-05-06 13:47 | CM.DANOTE ---
Patient is a 51 yo male who was admitted on 05/05/22 for Cellulitis. Pt has L&I for insurance and his PCP is Hermilo Christina. EMR was reviewed. Per MD, pt with hx of cellulitis and osteoarthritis and admitted for cellulitis of the thigh and currently on IV-Abx and no physical sign of drug abuse towards etiology of cellulitis. Per RN, pt may need outpt wound care at discharge. Hand Silvering Supervisor met with pt for teaching on foods for healing. SW met bedside briefly with pt as he was quite fatigued and sleepy and explained role and pt confirms he still lives in [place] with his Kwesi and pt works and drives at baseline and is independent with ADLs. Pt states spouse works nights but would be available for assist during the day and they have maybe someone named Toni living there as well? Pt denies any HH needs at this time and states he has a hx of needing outpt wound care previously but it was when he lived in [place] and has not needed outpt wound care here. Pt does not feel wound care likely needed at this time. Plan: SW to follow closely for hopeful transition from IV-Abx to oral abx at d/c and plan of home with spouse assist and r/o outpt wound care needs. SHANITA Randall Discharge Planning/Care Management CM Discharge Assessment Start: 05/06/22 13:28 Freq: Status: Active Protocol: Document 05/06/22 13:28 BF (Rec: 05/06/22 13:47 BF [id number]) Discharge Planning Assessment Assigned Pan Helper SHANITA Blake DPOA/Assigned Designee Name spouse Kwesi Contact Information [phone] Advance Directives? No Advance Directives on File No History Provided By Patient,Medical Record Has Patient been admitted in last 30 No days? Prior Living Arrangements Apartment/Condo Household Members spouse Type of transporation used prior to Drives own vehicle admit Independent with ADL's Yes Is patient alert and oriented? Yes Needs Assistance With Home Chores / Shopping Caregiver for Another No Patient/Family Preference Home with Home Health Comment r/o HH and hopeful for d/c on oral abx Barriers to Discharge No Discharge Plan Home Transportation Arrangement Spouse Referrals Initiated None needed Review Status In Process Please Provide Date Initial DC 05/06/22 Assessment Was Performed Next Review Type Continued Stay Review
--- NOTE | 2022-05-06 13:58 | DIET.CONS ---
Addendum entered by Irene Carvalho 05/06/22 15:01: Agree with student internal audit consultant note as written. Original Note: Dietary Consultation Note Admission Date: 05/05/2022 19:49 Assessment: Pt is a 51 yo M admitted for cellulitis, referred to RD for cellulitis and BMI of 30.9. Pt was asleep when RD entered the room. Pt was easily woken up but mumbled frequently and was slow to answer on occasion. It is unclear how much information was retained during the consult. Pt has cellulitis on leg and is unclear why he has recurring cellulitis. Pt's fingernails on left hand are white or yellow in color, suspect fungal infection. Diet Recall: 7:30 am B: bowl of Life cereal with whole milk, pastries if I'm ras 12-1 pm L: sandwich (typically peanut butter and jelly or ham and cheese) and milk 8 pm D: varies - pizza, meatloaf, cheeseburgers, etc. Snacks: chocolate or crackers Dessert: ice cream, pie Beverages: 2 cans/d Pepsi and water Ht: 193.04 cm Wt: 115.3 kg BMI: 31.6 Last BM: () MNA: 14 Chong Score: 20 Diet: 05/05/22 Breakfast General (Regular) Diet Diet Modifications: Labs: RBC 4.59 X10^6/uL (4.5-5.9) 05/06/22 06:50 Hgb 13.3 g/dL (13.5-17.5) L 05/06/22 06:50 Hct 39.0 % (41-53) L 05/06/22 06:50 Creatinine 0.99 mg/dL (0.66-1.25) 05/06/22 06:50 Lactate 1.5 mmol/L (0.7-2.1) 05/05/22 16:46 Nutrition Diagnosis: Excessive carbohydrate intake r/t food preference for sweetened foods and drinks aeb diet recall and recurring cellulitis. Interventions: 1. To support skin health and weight management, provided education on low or sugar-free alternatives for Pepsi, Life cereal, pastries, and ice cream. Pt agrees to replace Pepsi with sugar-free Pepsi or sparkling boone and life cereal with oatmeal. Provided education on balanced meals with protein and fiber to support blood glucose health. 2. Recc POC BG monitoring to assess for hyperglycemia and consider A1C. Monitoring/Evaluations: consult ROBERTO CARLOS nguyen Electronically Signed by: Jaja Augustine 05/06/22 13:58 Clinical Dietitian [address] [address]
[2022-05-06 18:40] VITALS: BP 138/77; PULSE 80; RESP 18; TEMP 36.6; O2SAT 95
[2022-05-06 23:46] VITALS: BP 128/72; PULSE 85; RESP 14; TEMP 36.6; O2SAT 98
[2022-05-07] MEDS: SODIUM CHLORIDE 0.9% 1,000 ML 100 ML IV (04:04)
[2022-05-07 06:00] VITALS: BP 135/85; PULSE 75; RESP 12; TEMP 36.9; O2SAT 94
[2022-05-07 07:55] LABS: Add Manual Diff / Slide Review NO; Basophils Absolute Auto 0 /uL (0-100); Basophils Percent Auto 0.6 % (0-2); Eosinophils Absolute Auto 200 /uL (0-450); Eosinophils Percent Auto 2.2 % (2-4); Hematocrit 40.2 % (41-53); Hemoglobin 13.7 g/dL (13.5-17.5); Lymphocytes Absolute Auto 1700 /uL (1100-4500); Lymphocytes Percent Auto 21.4 % (25-40); Mean Corpuscular HGB Conc 34.2 % (30-36); Monocytes Absolute Auto 700 /uL (0-900); Monocytes Percent Auto 8.8 % (3-14); Neutrophils Absolute Auto 5400 /uL (1500-7000); Platelet Count 182 X10^3/uL (150-400); Red Blood Cell Count 4.73 X10^6/uL (4.5-5.9)
[2022-05-07 08:03] LABS: BUN Creatinine Ratio 11.5 (6-22); Blood Urea Nitrogen 10 mg/dL (9-20); Carbon Dioxide 25 mmol/L (22-32); Chloride 104 mmol/L (98-107); Estimated Glomerular Filt Rate > 60 mL/min (>60); Glucose 117 mg/dL (70-100); HEMOLYSIS < 15 (0-50); Potassium 4.1 mmol/L (3.4-5.1); Sodium 136 mmol/L (137-145)
[2022-05-07] MEDS: ENOXAPARIN 40 MG/0.4 ML SYRINGE SUBCUT (08:37)
[2022-05-07] MEDS: VANCOMYCIN 1,500 MG/300 ML PIGGYBACK 200 MG IV (08:37)
--- NOTE | 2022-05-07 08:52 | P.PN_ITS ---
Exam Vital Signs (past 8 hours): - 05/07/22 06:00 Temperature 98.5 F Pulse Rate 75 Respiratory Rate 12 Blood Pressure 135/85 Pulse Oximetry 94 Oxygen Flow Rate 0 Oxygen Delivery Method Room Air Oxygen Flow Rate 0 Narrative Exam Narrative: GEN: no acute distress, frustrated HEENT: moist mucous membranes, PERRL NECK: trachea midline, no JVD CV: regular rate and rhythm, no murmurs PULM: clear bilaterally ABD: soft, nontender, nondistended, no organomegaly EXT: bilateral LE swelling, no drianage or erythema except for L posterior and medial thigh, no fluctuance NEURO: awake, alert, oriented, no focal deficits Objective Labs Result Diagrams: 05/07/22 07:38 05/07/22 07:38 Labs: Laboratory Results - last 24 hr 05/06/22 05/06/22 05/07/22 06:50 09:55 07:38 WBC RBC Hgb Hct MCV MCH MCHC RDW Plt Count Neut % (Auto) Lymph % (Auto) [place] % (Auto) Eos % (Auto) Baso % (Auto) Neut # (Auto) Lymph # (Auto) [place] # (Auto) Eos # (Auto) Baso # (Auto) Sodium Potassium Chloride Carbon Dioxide BUN Creatinine Estimated GFR BUN/Creatinine Ratio Glucose Calcium Vancomycin Trough 9.0 L U Opiates 300ng/mL cut Negative Ur Oxycodone Screen Negative Urine Methadone Screen Negative Ur Barbiturates Screen Negative U Tricyclic Antidepress Negative Ur Phencyclidine Scrn Negative Ur Amphetamines Screen Positive H U Methamphetamines Scrn Positive H Ur MDMA Scrn (Ecstasy) Negative U Benzodiazepines Scrn Negative Urine Cocaine Screen Negative U Marijuana (THC) Screen Negative Ethyl Alcohol < 10 05/07/22 05/07/22 07:38 07:38 WBC 8.0 RBC 4.73 Hgb 13.7 Hct 40.2 L MCV 85.0 MCH 29.0 MCHC 34.2 RDW 13.0 Plt Count 182 Neut % (Auto) 67.0 Lymph % (Auto) 21.4 L [place] % (Auto) 8.8 Eos % (Auto) 2.2 Baso % (Auto) 0.6 Neut # (Auto) 5400 Lymph # (Auto) 1700 [place] # (Auto) 700 Eos # (Auto) 200 Baso # (Auto) 0 Sodium 136 L Potassium 4.1 Chloride 104 Carbon Dioxide 25 BUN 10 Creatinine 0.87 Estimated GFR > 60 BUN/Creatinine Ratio 11.5 Glucose 117 H Calcium 8.0 L Vancomycin Trough U Opiates 300ng/mL cut Ur Oxycodone Screen Urine Methadone Screen Ur Barbiturates Screen U Tricyclic Antidepress Ur Phencyclidine Scrn Ur Amphetamines Screen U Methamphetamines Scrn Ur MDMA Scrn (Ecstasy) U Benzodiazepines Scrn Urine Cocaine Screen U Marijuana (THC) Screen Ethyl Alcohol PFSH Medical History History of cellulitis of skin with lymphangitis Tobacco use Family History (Updated 05/06/22 @ 06:09 by Shana Shaikh, [facility]) Father Diabetes mellitus Myocardial infarct CKD (chronic kidney disease) Mother Cancer Social History household members: spouse Smoking Status: Current every day smoker alcohol intake: current Assessment & Plan Assessment & Plan narrative: 1. Left thigh Group A strep cellulitis/erysipelas, with lymphadenopathy, acute, present on admission -has erythema, tenderness, warmth of left leg, behind less knee and left thigh. failed outpatient oral abx therapy. -left mid calf 47 cm, ankle 32. Right mid calf 45 cm, ankle 27 -white blood cell count 15.7 on admission but improved to 10.4 -Left lower extremity ultrasound: Negative for deep venous thrombosis, with abnormally enlarged left groin lymph nodes. -for coverage of beta-hemolytic strep and MRSA patient is started on vancomycin -elevate LLE extremity to reduce swelling, ice packs as needed -recommend after evaluation by wound care -PT/OT evaluation -doubt septic arthritis as has good range of motion -blood cultures pending 2. History of bilateral knee osteoarthritis and chronic venous insufficiency, chronic, present on admission -managed by PCP with compression stockings but patient claims they do not help -recently saw ortho outpatient for possible left knee replacement -recommend PCP referral to outpatient vascular surgery to consider venous ablation 3. Tobacco use, acute on chronic, present on admission -patient provided education regarding tobacco cessation -offered nicotine patch-patient refused at this time. 4. Methamphamine abuse -patient very somnolent on admission -Utox positive for meth -encourage cessation Code: Full Surrogate decision maker: Kwesi Yu, spouse COVID PCR: Negative DVT/VTE prophylaxis: Lovenox and SCDs Disposition: Inpatient status secondary to failure of outpatient oral antibiotics requiring IV abx. Likely home in 1-2 days. Time Spent With Patient Critical Care time: I spent a total of [] minutes of critical care time on this patient's care today; this time is exclusive of procedural time. Quality VTE Deep Vein Thrombosis/Pulmonary Embolism Present on Admission: No
[2022-05-07 11:40] VITALS: BP 120/73; PULSE 73; RESP 16; TEMP 36.4; O2SAT 95
--- NOTE | 2022-05-07 11:51 | PC.NURSE ---
Day shift: Pt left unit at approx 1150 via WC. TAMEKA Vallejo is taking hoime to car. Pt is driving himself home. Paperwork signed and all questions answered. Pt has all personal belongings and items from safe. scripts sent electronic to Pt's pharmacy. Pt encouraged to take all meds u ntil gone and as directed. Also encouraged to f/u w/ PCP for BLE venous problems.
--- NOTE | 2022-05-07 12:26 | PM.DS.1 ---
History of Present Illness History of Present Illness Date Patient Seen: 05/07/22 Time Patient Seen: 12:27 Chief complaint: something wrong with left leg Narrative: Maximiliano Yu is a 51-year-old male with a medical history of? prior left lower extremity cellulitis 2020, left knee osteoarthritis, takes no medications who presented to the ED complaining of ?left leg swelling and redness.? He was admitted almost 1 year ago for the same.? Today he feels like he has new redness and swelling posterior his left thigh.? He denies chest pain, shortness breath, fever, body aches, chills he feels weak he is in severe pain he feels like it is rubbing on his pants.? He has had chronic left leg swelling, with redness, worse in the ankle since the 2020 cellulitis, the posterior knee and thigh pain, redness, and swelling is new onset and what brought him in tonight.? Patient works as a [employer], and denies any recent illness injury, any a situation in which he would have constant pressure or shearing to the back of the left thigh.? Patient denies abdominal pain nausea, vomiting, diarrhea, constipation, urinary symptoms, skin injuries, infections, taking any recreational substances, no falls or hitting his head or loss of consciousness, does not take any medications.? Patient reports that he drank heavily until 6 years ago, now drinks maybe once or twice a year, is a daily smoker.? Patient denies any family history of any blood/vascular disorders, or cancers.? Patient's body has no signs of IV drug use.? Cause of recurrent cellulitis is unknown. In ED patient presented with temp 99.5?, heart rate of 100 and respiratory rate of 20, on admit temp continues 99.5, BP 123/70, HR 98, R 20, O2 saturation 100% on room air.? It should be noted that patient was severely lethargic upon admit exam and only responded to sternal rub, patient denies any substance use, tox screen ordered-it appears he may just be very sensitive to the 15 mg of Toradol IV he was given in ED. he was not given any other pain medication, white blood cell count 15.7 with a left shift neutrophils 13,500, mono 1000, chemistry and liver panels are within normal limits, procalcitonin, lipase, lactate are WNL.? Sofa score:? 0, EKG normal sinus rhythm with a rate of [address] or T-wave changes, chest x-ray minimal patchy left basilar opacity-possible atelectasis or aspiration pneumonia.? Left lower extremity ultrasound: Negative for deep venous thrombosis, with abnormally enlarged left groin lymph nodes.? Patient admitted for acute cellulitis versus erysipelas left lower leg, recurrent, with lymphadenitis. Discharge Providers Provider Date of admission: 05/05/22 19:49 Discharge Date: 05/07/22 Primary care physician: Hermilo Christina MD Consults: 05/06/22 06:20 Consult to Dietitian, Adult Routine Comment: Reason For Exam: Recurrent cellulitis left leg, BMI 30.9 Discharge provider: Steven Mccollum DO Summary Hospital Course Discharge Diagnosis: 1. Left thigh Group A strep cellulitis/erysipelas, with lymphadenopathy, acute, present on admission -has erythema, tenderness, warmth of left leg, behind less knee and left thigh. failed outpatient oral abx therapy. -left mid calf 47 cm, ankle 32. Right mid calf 45 cm, ankle 27 -white blood cell count 15.7 on admission but improved to 10.4 -Left lower extremity ultrasound: Negative for deep venous thrombosis, with abnormally enlarged left groin lymph nodes. -for coverage of beta-hemolytic strep and MRSA patient is started on vancomycin -elevate LLE extremity to reduce swelling, ice packs as needed -doubt septic arthritis as has good range of motion -blood cultures negative -discharged on 5 additional days of linezolid po 2. History of bilateral knee osteoarthritis and chronic venous insufficiency, chronic, present on admission -managed by PCP with compression stockings but patient claims they do not help -recently saw ortho outpatient for possible left knee replacement -recommend PCP referral to outpatient vascular surgery to consider venous ablation 3. Tobacco use, acute on chronic, present on admission -patient provided education regarding tobacco cessation -offered nicotine patch-patient refused at this time. 4. Methamphamine abuse -patient very somnolent on admission -Utox positive for meth -encourage cessation Hospital Course: Admitted for LLE cellulitis of posterior thigh. Appeared to be erysipelas so given IV vanco and improved significantly. Blood cultures were negative. Discharged on po linezolid for 5 days outpatient. Utox positive for meth. Time Spent with Patient Time spent: Greater than 30 minutes Exam Vital Signs (past 8 hours): - 05/07/22 06:00 05/07/22 11:40 Temperature 98.5 F 97.6 F Pulse Rate 75 73 Respiratory Rate 12 16 Blood Pressure 135/85 120/73 Pulse Oximetry 94 95 Oxygen Flow Rate 0 0 Oxygen Delivery Method Room Air Oxygen Flow Rate 0 Narrative Exam Narrative: GEN: no acute distress HEENT: moist mucous membranes, PERRL NECK: trachea midline, no JVD CV: regular rate and rhythm, no murmurs PULM: clear bilaterally ABD: soft, nontender, nondistended, no organomegaly EXT: bilateral LE swelling, no drianage or erythema except for L posterior and medial thigh, no fluctuance NEURO: awake, alert, oriented, no focal deficits Objective Labs Result Diagrams: 05/07/22 07:38 05/07/22 07:38 Labs: Laboratory Results - last 24 hr 05/07/22 05/07/22 05/07/22 07:38 07:38 07:38 WBC 8.0 RBC 4.73 Hgb 13.7 Hct 40.2 L MCV 85.0 MCH 29.0 MCHC 34.2 RDW 13.0 Plt Count 182 Neut % (Auto) 67.0 Lymph % (Auto) 21.4 L [place] % (Auto) 8.8 Eos % (Auto) 2.2 Baso % (Auto) 0.6 Neut # (Auto) 5400 Lymph # (Auto) 1700 [place] # (Auto) 700 Eos # (Auto) 200 Baso # (Auto) 0 Sodium 136 L Potassium 4.1 Chloride 104 Carbon Dioxide 25 BUN 10 Creatinine 0.87 Estimated GFR > 60 BUN/Creatinine Ratio 11.5 Glucose 117 H Calcium 8.0 L Vancomycin Trough 9.0 L PFSH Medical History History of cellulitis of skin with lymphangitis Tobacco use Family History (Updated 05/06/22 @ 06:09 by NADINE Norris) Father Diabetes mellitus Myocardial infarct CKD (chronic kidney disease) Mother Cancer Social History household members: spouse Smoking Status: Current every day smoker alcohol intake: current Discharge Plan Discharge Plan Patient Disposition: Home Provider Discharge Comment: You were admitted for cellulitis of the left thigh which improved with IV antibiotics. You will now take an oral antibiotic which you haven't tried before for 5 days. In terms of your chronic leg swelling this is likely from venous insufficiency which which means bad veins in the legs so blood pools and swelling occurs. This is usually treated mainly with compressive stockings which you have failed. Please get a referral to a vascular specialist for this and try to elevated both legs but especially the left everyday for a few hours using pillows in bed or a recliner chair. Discharge orders & Medications Prescriptions: New linezolid 600 mg tablet 600 mg PO BID 5 Days Qty: 10 0RF Rx Instructions: start on evening of 05/07 Follow up/Referrals: Hermilo Christina MD [Primary Care Provider] - Visit Report/Discharge Packet Instructions: DI for Cellulitis -- Adult, Chronic Venous Insufficiency Discharge Data Primary Care Provider: Hermilo Christina Quality VTE Deep Vein Thrombosis/Pulmonary Embolism Present on Admission: No
== END 2022-05-07 11:53 | disposition home or self-care (01) | DRG 383 ==
LOC: ED 18:27 → AC 19:50
PROVIDERS: Emergency Medicine; Student in an Organized Health Care Education/Training Program; Admitting Provider Nurse Practitioner Family; Emergency Provider Emergency Medicine; PCP Orthopaedic Surgery Sports Medicine; Referring Provider Emergency Medicine; Visit Provider Nurse Practitioner Family
DX: L03.116 Cellulitis of left lower limb (principal); R59.1 Generalized enlarged lymph nodes; F15.10 Other stimulant abuse, uncomplicated; A46 Erysipelas; B95.0 Streptococcus, group A, as the cause of diseases classified elsewhere; I87.2 Venous insufficiency (chronic) (peripheral); Z72.0 Tobacco use; Z20.822 Contact with and (suspected) exposure to COVID-19
CPT/HCPCS: 36415; 71045; 80048; 80053; 80202; 80305; 80320; 83605; 83690; 84145; 85025; 85651; 86140; 87040; 87635; 87797; 93005; 93010; 93971; 96365; 96367; 96375; 99284; C9803; J0696; J1650; J1885